=== PATIENT | female | born 1970 | race Caucasian/White ===

== ENCOUNTER 2017-02-14 19:52 | Emergency (ER) | payer MEDICARE, MEDICAID ==
[2017-02-14] MEDS ORDERED: Ondansetron INJ* 2 MG/ML VIAL IV ONE (20:25)
[2017-02-14] MEDS ORDERED: NS 0.9% 1000 ML* 1,000 ML IV ONE ×2 (20:25→23:27)
[2017-02-14 20:42] LABS: Hematocrit 39 % (35-47); Mean Corpuscular HGB Conc 33 g/dl (31-36); Mean Corpuscular Hemoglobin 32 pg (27-31); Mean Corpuscular Volume 95 fL (80-97); Mean Platelet Volume 9 um3 (7.4-10.4); Red Blood Count 4.13 10^6/ul (4.0-5.4); Red Cell Distribution Width 14 % (10.5-15); White Blood Count 5.2 10^3/ul (3.5-10.8)
[2017-02-14 20:57] LABS: ALT 44 U/L (7-52); Albumin 4.4 g/dL (3.2-5.2); Alkaline Phosphatase 90 U/L (34-104); BUN/Creatinine Ratio 14.5 (8-20); Blood Urea Nitrogen 10 mg/dL (6-24); C Reactive Protein 6.32 mg/L (< 5.00); CO2 Carbon Dioxide 24 mmol/L (22-32); Calcium 10.5 mg/dL (8.6-10.3); Chloride 97 mmol/L (101-111); EGFR African American 116.8 (>60); EGFR Non-African American 90.8 (>60); Globulin 5.4 g/dL (2-4); Glucose 120 mg/dL (70-100); Lipase 68 U/L (11.0-82.0); Sodium 132 mmol/L (133-145); Total Protein 9.8 g/dL (6.4-8.9)
[2017-02-14 21:44] LABS: Magnesium 1.4 mg/dL (1.9-2.7)
[2017-02-14] MEDS ORDERED: Metoclopramide IV* 5 MG/ML 2 ML VIAL IV ONE (21:50)
--- NOTE | 2017-02-14 22:06 | ED ---
Dillon Dove Billy, scribed for Josh Ash MD on 02/14/17 at 2024 . GI/ HPI - HPI Summary HPI Summary: Patient is a 46 year-old female coming to [facility] for evaluation of abdominal pain , nausea, and vomiting since yesterday. Patient reports pain severity 10/10. Nothing has made her pain better or worse. She also reports headache, sweating, as well as blood in the stool and vomit. - History of Current Complaint Chief Complaint: EDNauseaVomitDiarrh Time Seen by Provider: 02/14/17 20:08 Stated Complaint: HEAD PAIN/VOMITING/NAUSEA Hx Obtained From: Patient Onset/Duration: Started Days Ago Timing: Constant Severity: Moderate Current Severity: Moderate Pain Intensity: 10 Location of Pain: Diffuse Associated Signs and Symptoms: Positive: Hematemesis, Nausea, Vomiting, Blood w/ Stool, Diaphoresis Aggravating Factor(s): Nothing Alleviating Factor(s): Nothing - Allergy/Home Medications Allergies/Adverse Reactions: Allergies Allergy/AdvReac Type Severity Reaction Status Date / Time Iodinated Diagnostic Agents Allergy Intermediate Rash Verified 06/05/16 14:01 Sulfamethoxazole Allergy Intermediate Rash Verified 06/05/16 14:01 w/Trimethoprim [From ] NSAIDs AdvReac Intermediate Vomiting Verified 06/05/16 14:01 PMH/Surg Hx/FS Hx/Imm Hx Endocrine/Hematology History: Denies: Hx Diabetes, Hx Thyroid Disease Cardiovascular History: Denies: Hx Congestive Heart Failure, Hx Deep Vein Thrombosis, Hx Hypertension - She states that she has asthma and chronic bronchitis, but she's not on Rx., Hx Myocardial Infarction, Hx Pacemaker/ICD Respiratory History: Reports: Hx Asthma Denies: Hx Lung Cancer GI History: Denies: Hx Gall Bladder Disease, Hx Gastrointestinal Bleed, Hx Ulcer, Hx Urosepsis History: Denies: Hx Kidney Stones, Hx Renal Disease Musculoskeletal History: Reports: Other Musculoskeletal History - claims to have drop foot in both feet Neurological History: Denies: Hx Dementia, Hx Migraine, Hx Seizures, Hx Transient Ischemic Attacks (TIA) Psychiatric History: Reports: Hx Depression - On no medications. Denies: Hx Anxiety, Hx Schizophrenia, Hx Bipolar Disorder - Surgical History Surgery Procedure, Year, and Place: Screw and plate in left arm, appendectomy ( 1979) Infectious Disease History: No Infectious Disease History: Denies: History Other Infectious Disease, Traveled Outside the [place] in Last 30 Days - Family History Known Family History: Positive: Cardiac Disease, Hypertension, Diabetes - Social History Alcohol Use: Daily Alcohol Amount: 12 BEERS DAILY Substance Use Type: Reports: Cocaine, Heroin, Marijuana, Prescribed Substance Use Comment - Amount & Last Used: states she has not used in years, hx of drug use Smoking Status (MU): Heavy Every Day Tobacco Smoker Type: Cigarettes Amount Used/How Often: avg 1 ppd Review of Systems Positive: Skin Diaphoresis Positive: Abdominal Pain, Vomiting, Nausea, Other - blood in vomit and stool Positive: Headache All Other Systems Reviewed And Are Negative: Yes Physical Exam Triage Information Reviewed: Yes Vital Signs On Initial Exam: Initial Vitals Temp Pulse Resp BP Pulse Ox 98 F 88 16 141/97 100 02/14/17 20:04 02/14/17 20:04 02/14/17 20:04 02/14/17 20:04 02/14/17 20:04 Vital Signs Reviewed: Yes Appearance: Positive: No Pain Distress, Thin, Cachectic Skin: Positive: Warm Head/Face: Positive: Normal Head/Face Inspection Eyes: Positive: MARLENA ENT: Positive: Hearing grossly normal Neck: Positive: Supple Respiratory/Lung Sounds: Positive: Clear to Auscultation, Breath Sounds Present Cardiovascular: Positive: RRR Abdomen Description: Positive: Nontender, Soft Musculoskeletal: Positive: Normal, Strength/ROM Intact Neurological: Positive: Alert, Oriented to Person Place, Time Psychiatric: Positive: Affect/Mood Appropriate - [place] Coma Scale Coma Scale Total: 15 Diagnostics - Vital Signs Vital Signs Temp Pulse Resp BP Pulse Ox 02/14/17 20:04 98 F 88 16 141/97 100 - Laboratory Lab Results: Lab Results 02/14/17 02/14/17 02/14/17 Range/Units 20:30 20:30 20:30 WBC 5.2 (3.5-10.8) 10^3/ul RBC 4.13 (4.0-5.4) 10^6/ul Hgb 13.0 (12.0-16.0) g/dl Hct 39 (35-47) % MCV 95 (80-97) fL MCH 32 H (27-31) pg MCHC 33 (31-36) g/dl RDW 14 (10.5-15) % Plt Count 196 (150-450) 10^3/ul MPV 9 (7.4-10.4) um3 Neut % (Auto) 67.0 (38-83) % Lymph % (Auto) 21.8 L (25-47) % [place] % (Auto) 10.1 H (1-9) % Eos % (Auto) 0.6 (0-6) % Baso % (Auto) 0.5 (0-2) % Absolute Neuts (auto) 3.5 (1.5-7.7) 10^3/ul Absolute Lymphs (auto) 1.1 (1.0-4.8) 10^3/ul Absolute Monos (auto) 0.5 (0-0.8) 10^3/ul Absolute Eos (auto) 0 (0-0.6) 10^3/ul Absolute Basos (auto) 0 (0-0.2) 10^3/ul Absolute Nucleated RBC 0.01 10^3/ul Nucleated RBC % 0.1 INR (Anticoag Therapy) 1.08 (0.89-1.11) Sodium 132 L (133-145) mmol/L Potassium TNP Chloride 97 L (101-111) mmol/L Carbon Dioxide 24 (22-32) mmol/L Anion Gap TNP BUN 10 (6-24) mg/dL Creatinine 0.69 (0.51-0.95) mg/dL Est GFR ( Amer) 116.8 (>60) Est GFR (Non-Af Amer) 90.8 (>60) BUN/Creatinine Ratio 14.5 (8-20) Glucose 120 H (70-100) mg/dL Lactic Acid (0.5-2.0) mmol/L Calcium 10.5 H (8.6-10.3) mg/dL Magnesium TNP Total Bilirubin 0.80 (0.2-1.0) mg/dL AST TNP ALT 44 (7-52) U/L Alkaline Phosphatase 90 (34-104) U/L C-Reactive Protein 6.32 H (< 5.00) mg/L Total Protein 9.8 H (6.4-8.9) g/dL Albumin 4.4 (3.2-5.2) g/dL Globulin 5.4 H (2-4) g/dL Albumin/Globulin Ratio 0.8 L (1-3) Lipase 68 (11.0-82.0) U/L Beta HCG, Quant 5.02 mIU/mL 02/14/17 02/14/17 Range/Units 20:30 21:20 WBC (3.5-10.8) 10^3/ul RBC (4.0-5.4) 10^6/ul Hgb (12.0-16.0) g/dl Hct (35-47) % MCV (80-97) fL MCH (27-31) pg MCHC (31-36) g/dl RDW (10.5-15) % Plt Count (150-450) 10^3/ul MPV (7.4-10.4) um3 Neut % (Auto) (38-83) % Lymph % (Auto) (25-47) % [place] % (Auto) (1-9) % Eos % (Auto) (0-6) % Baso % (Auto) (0-2) % Absolute Neuts (auto) (1.5-7.7) 10^3/ul Absolute Lymphs (auto) (1.0-4.8) 10^3/ul Absolute Monos (auto) (0-0.8) 10^3/ul Absolute Eos (auto) (0-0.6) 10^3/ul Absolute Basos (auto) (0-0.2) 10^3/ul Absolute Nucleated RBC 10^3/ul Nucleated RBC % INR (Anticoag Therapy) (0.89-1.11) Sodium (133-145) mmol/L Potassium 4.0 Chloride (101-111) mmol/L Carbon Dioxide (22-32) mmol/L Anion Gap BUN (6-24) mg/dL Creatinine (0.51-0.95) mg/dL Est GFR ( Amer) (>60) Est GFR (Non-Af Amer) (>60) BUN/Creatinine Ratio (8-20) Glucose (70-100) mg/dL Lactic Acid 1.5 (0.5-2.0) mmol/L Calcium (8.6-10.3) mg/dL Magnesium 1.4 L Total Bilirubin (0.2-1.0) mg/dL AST 68 H ALT (7-52) U/L Alkaline Phosphatase (34-104) U/L C-Reactive Protein (< 5.00) mg/L Total Protein (6.4-8.9) g/dL Albumin (3.2-5.2) g/dL Globulin (2-4) g/dL Albumin/Globulin Ratio (1-3) Lipase (11.0-82.0) U/L Beta HCG, Quant mIU/mL Result Diagrams: 02/14/17 20:30 02/14/17 21:20 Lab Statement: Any lab studies that have been ordered have been reviewed, and results considered in the medical decision making process. Re-Evaluation - Re-Evaluation First Eval Change: Improved - tolerating po GIGU Course/Dx - Diagnoses Provider Diagnoses: Abdominal pain, Nausea & vomiting Discharge - Discharge Plan Condition: Stable Disposition: HOME Patient Education Materials: Abdominal Pain (ED), Acute Nausea and Vomiting (ED ) Referrals: Dereje Zavala DO [Primary Care Provider] - The documentation as recorded by the Dillon obrien Billy accurately reflects the service I personally performed and the decisions made by me, Josh Ash MD.
[2017-02-15] MEDS ORDERED: Ondansetron INJ* 2 MG/ML VIAL IV ONE (00:12)
[2017-02-15 02:29] VITALS: BP 131/72
== END 2017-02-15 02:29 | disposition home or self-care (01) ==
LOC: ED 19:52
DX: R10.9 Unspecified abdominal pain (principal); R11.2 Nausea with vomiting, unspecified; R51 Headache; R31.9 Hematuria, unspecified; F17.210 Nicotine dependence, cigarettes, uncomplicated
CPT/HCPCS: 36415; 80053; 83605; 83690; 83735; 84702; 85025; 85610; 86140; 96374; 96375; 99282; J2405

== ENCOUNTER 2018-01-13 18:57 | Emergency (ER) | payer MEDICARE, MEDICAID ==
[2018-01-13] MEDS ORDERED: Ketorolac INJ* 60 MG/2 ML VIAL IM ONE (19:55)
[2018-01-13] MEDS ORDERED: Morphine INJ* 4 MG/ML 1 ML CARPUJECT IV ONE (19:55)
--- NOTE | 2018-01-13 20:02 | ED ---
Upper Extremity Pain - HPI Summary HPI Summary: 47yo F presents with fall, R shoulder injury. She states this happened at ~6pm tonight as she was trying to set down her groceries at the [employer] -- as she did so she fell forward into a glass door injuring the shoulder. She denies head injury. She is LEFT handed. She denies numbness, but she has difficulty moving the arm. She is intoxicated and tearful and difficult to obtain hx from. Also reported is a visit last week with PCP for a "ligament injury" to the posterior R shoulder "from carrying a lot." She denies any drug use. - History of Current Complaint Chief Complaint: EDExtremityUpper Stated Complaint: FALL/SHOULDER INJURY Time Seen by Provider: 01/13/18 19:47 Hx Obtained From: Patient Hx From Patient Unobtainable Due To: Other - limited due to ETOH/intox Hx Last Menstrual Period: 06/01/16 - Allergies/Home Medications Allergies/Adverse Reactions: Allergies Allergy/AdvReac Type Severity Reaction Status Date / Time MS Iodinated Diagnostic Allergy Intermediate Rash Verified 06/05/16 14:01 Agents [Iodinated Diagnostic Agents] MS Sulfamethoxazole Allergy Intermediate Rash Verified 06/05/16 14:01 w/Trimethoprim [From ] MS NSAIDs [NSAIDs] AdvReac Intermediate Vomiting Verified 06/05/16 14:01 PMH/Surg Hx/FS Hx/Imm Hx Endocrine/Hematology History: Denies: Hx Diabetes, Hx Thyroid Disease Cardiovascular History: Denies: Hx Congestive Heart Failure, Hx Deep Vein Thrombosis, Hx Hypertension - She states that she has asthma and chronic bronchitis, but she's not on Rx., Hx Myocardial Infarction, Hx Pacemaker/ICD Respiratory History: Reports: Hx Asthma Denies: Hx Lung Cancer GI History: Reports: Other GI Disorders - "liver problems" with "spots on the liver" Denies: Hx Gall Bladder Disease, Hx Gastrointestinal Bleed, Hx Ulcer, Hx Urosepsis History: Denies: Hx Kidney Stones, Hx Renal Disease Musculoskeletal History: Reports: Other Musculoskeletal History - claims to have drop foot in both feet Neurological History: Reports: Other Neuro Impairments/Disorders - jumpy nerves Denies: Hx Dementia, Hx Migraine, Hx Seizures, Hx Transient Ischemic Attacks (TIA) Psychiatric History: Reports: Hx Depression - On no medications. Denies: Hx Anxiety, Hx Schizophrenia, Hx Bipolar Disorder - Surgical History Surgery Procedure, Year, and Place: Screw and plate in left arm, appendectomy ( 1979) Infectious Disease History: No Infectious Disease History: Denies: History Other Infectious Disease, Traveled Outside the [place] in Last 30 Days - Family History Known Family History: Positive: Cardiac Disease, Hypertension, Diabetes - Social History Alcohol Use: tonight as well Alcohol Amount: 12 BEERS DAILY Substance Use Type: Reports: Cocaine, Heroin, Marijuana, Prescribed Substance Use Comment - Amount & Last Used: states she has not used in years, hx of drug use Smoking Status (MU): Heavy Every Day Tobacco Smoker Type: Cigarettes Amount Used/How Often: avg 1 ppd Review of Systems Constitutional: Negative Negative: Cough Positive: Decreased ROM, Other - R shoulder injury. Negative: Myalgia Negative: Headache, Paresthesia, Numbness Positive: Anxious, Other - +alcohol All Other Systems Reviewed And Are Negative: Yes Physical Exam Triage Information Reviewed: Yes Vital Signs On Initial Exam: Initial Vitals Temp Pulse Resp BP Pulse Ox 36.7 C 66 16 75/48 97 01/13/18 19:00 01/13/18 19:00 01/13/18 19:00 01/13/18 19:00 01/13/18 19:00 Vital Signs Reviewed: Yes Appearance: Positive: Pain Distress - mild, tearful and smelling of ETOH Skin: Positive: Warm, Skin Color Reflects Adequate Perfusion, Dry Eyes: Positive: EOMI, Other: - tearful, injected conj ENT: Positive: Normal ENT inspection Neck: Positive: Supple, Nontender Respiratory/Lung Sounds: Positive: Other - occassional wheeze. Negative: Decreased Breath Sounds Cardiovascular: Positive: RRR Abdomen Description: Positive: Nontender Musculoskeletal: Positive: Other - R sup shoulder area with mild abrasion, anterior shoulder with swelling. Unable to determine exact site of tenderness as she wails with any light palpation from distal clavicle through the elbow. Hand is neurovasc intact. No pain with supination/pronation at elbow. Unable to range shoulder due to pain and cooperation. Neurological: Positive: Normal, Alert, Oriented to Person Place, Time AVPU Assessment: Alert Procedures - Procedure Summary Procedure Summary: R shoulder sling: for fracture. Pt placed in a R shoulder immobilizer. NV intact. [place] well. Diagnostics - Vital Signs Vital Signs Temp Pulse Resp BP Pulse Ox 01/13/18 19:44 92/65 01/13/18 19:00 36.7 C 66 16 75/48 97 - Laboratory Lab Statement: Any lab studies that have been ordered have been reviewed, and results considered in the medical decision making process. - Radiology No standard instances Xray Interpretation: Positive (See Comments) Radiology Interpretation Completed By: Radiologist - Xray of Humerus/R Shoulder : Prox humeral fx (neck) Re-Evaluation - Re-Evaluation First Eval Change: Improved Course/Dx - Course Course Of Treatment: Pt tx for pain, fx confirmed. Placed in sling/immobilizer. D/W Ortho who will see in office. Tx pain. Stated NSAID allergy. - Diagnoses Provider Diagnoses: Proximal humerus fracture, Fall, Alcohol ingestion Discharge - Discharge Plan Condition: Good Disposition: HOME Prescriptions: Oxycodone HCl/Acetaminophen [Percocet 5-325 mg Tablet] 1 each PO Q4H PRN #20 tablet MDD 6 PRN Reason: shoulder pain Patient Education Materials: Proximal Humerus Fracture (ED) Referrals: Dereje Zavala DO [Primary Care Provider] - Fede Kline MD [Medical Doctor] - Additional Instructions: Keep slinged. Ice for comfort. Call in the morning to establish follow up with the Orthopedic doctor. Return if worse, new symptoms or other concerns.
[2018-01-13] MEDS ORDERED: Morphine INJ* 4 MG/ML 1 ML SYRINGE (NEW SYRINGE VERSION) ONE (20:27)
--- NOTE | 2018-01-13 20:30 | RAD ---
INDICATION: Right arm injury COMPARISON: Right shoulder same date TECHNIQUE: AP and lateral views were obtained. FINDINGS: There is a mildly impacted and displaced transverse fractures of the neck of the humerus. No other fractures are evident. The soft tissues are intact. IMPRESSION: PROXIMAL HUMERAL FRACTURE.
--- NOTE | 2018-01-13 20:31 | RAD ---
INDICATION: Proximal humeral fracture COMPARISON: Right humerus same date TECHNIQUE: AP and lateral views were obtained. FINDINGS: There is a transverse fracture involving the neck of the humerus. There is mild impaction and there is mild medial displacement of distal fracture fragment. No other fractures are evident. The a.c. and glenohumeral joints are intact. IMPRESSION: HUMERAL NECK FRACTURE.
[2018-01-13 22:04] VITALS: BP 108/78
== END 2018-01-13 22:07 | disposition home or self-care (01) ==
LOC: ED 18:57
DX: S42.291A Other displaced fracture of upper end of right humerus, initial encounter for closed fracture (principal); W19.XXXA Unspecified fall, initial encounter; Y92.9 Unspecified place or not applicable; J44.9 Chronic obstructive pulmonary disease, unspecified; F17.210 Nicotine dependence, cigarettes, uncomplicated; Z72.89 Other problems related to lifestyle
CPT/HCPCS: 99283; J1885; J2270

== ENCOUNTER 2018-11-04 18:19 | Emergency (ER) | payer MEDICARE, MEDICAID ==
[2018-11-04] MEDS ORDERED: Acetaminophen TAB* 325 MG PO ONE (18:52)
--- NOTE | 2018-11-04 19:52 | ED ---
Adult Trauma - HPI Summary HPI Summary: 48-year-old female presents with tailbone pain and head injury after fall today. States she slipped on a stairs and fell down 8 stairs. She denies any loss consciousness. She admits to nausea vomiting but she states it may be due to her being off her gabapentin. She denies any dizziness. She also admits to left-sided rib pain. She was able to ambulate into the house. States that she had a couple beers prior to coming. She states that she felt off the past couple days due to not being a gabapentin. She has a refill of gabapentin at her pharmacy. She denies any change in vision. She states the pain seems to radiate to her hips. No numbness or tingling. No weakness. No loss of bowel or bladder or saddle anesthesias. No fevers. - History of Current Complaint Chief Complaint: EDHeadInjury Stated Complaint: FALL Time Seen by Provider: 11/04/18 18:36 Hx Last Menstrual Period: 06/01/16 Pain Intensity: 10 - Allergy/Home Medications Allergies/Adverse Reactions: Allergies Allergy/AdvReac Type Severity Reaction Status Date / Time MS Iodinated Diagnostic Allergy Intermediate Rash Verified 11/04/18 18:35 Agents [Iodinated Diagnostic Agents] MS Sulfamethoxazole Allergy Intermediate Rash Verified 11/04/18 18:35 w/Trimethoprim [From ] MS NSAIDs [NSAIDs] AdvReac Intermediate Vomiting Verified 11/04/18 18:35 PMH/Surg Hx/FS Hx/Imm Hx Endocrine/Hematology History: Denies: Hx Diabetes, Hx Thyroid Disease Cardiovascular History: Denies: Hx Congestive Heart Failure, Hx Deep Vein Thrombosis, Hx Hypertension - She states that she has asthma and chronic bronchitis, but she's not on Rx., Hx Myocardial Infarction, Hx Pacemaker/ICD Respiratory History: Reports: Hx Asthma Denies: Hx Lung Cancer GI History: Reports: Other GI Disorders - "liver problems" with "spots on the liver" Denies: Hx Gall Bladder Disease, Hx Gastrointestinal Bleed, Hx Ulcer, Hx Urosepsis History: Denies: Hx Kidney Stones, Hx Renal Disease Musculoskeletal History: Reports: Other Musculoskeletal History - claims to have drop foot in both feet Neurological History: Reports: Other Neuro Impairments/Disorders - jumpy nerves Denies: Hx Dementia, Hx Migraine, Hx Seizures, Hx Transient Ischemic Attacks (TIA) Psychiatric History: Reports: Hx Depression - On no medications. Denies: Hx Anxiety, Hx Schizophrenia, Hx Bipolar Disorder - Surgical History Surgery Procedure, Year, and Place: Screw and plate in left arm, appendectomy ( 1979) Infectious Disease History: No Infectious Disease History: Denies: History Other Infectious Disease, Traveled Outside the [place] in Last 30 Days - Family History Known Family History: Positive: Cardiac Disease, Hypertension, Diabetes - Social History Alcohol Use: Daily Alcohol Amount: 12 BEERS DAILY Substance Use Type: Reports: Cocaine, Heroin, Marijuana, Prescribed Substance Use Comment - Amount & Last Used: states she has not used in years, hx of drug use Smoking Status (MU): Heavy Every Day Tobacco Smoker Type: Cigarettes Amount Used/How Often: avg 1 ppd Review of Systems Negative: Fever Positive: Other - left side rib pain. Negative: Chest Pain Negative: Shortness Of Breath Positive: Myalgia - tailbone pain Positive: Headache All Other Systems Reviewed And Are Negative: Yes Physical Exam Triage Information Reviewed: Yes Vital Signs On Initial Exam: Initial Vitals Temp Pulse Resp BP Pulse Ox 98.4 F 86 19 122/82 100 11/04/18 18:30 11/04/18 18:30 11/04/18 18:30 11/04/18 18:30 11/04/18 18:30 Vital Signs Reviewed: Yes Appearance: Positive: Well-Appearing Skin: Positive: Warm, Dry Head/Face: Positive: Normal Head/Face Inspection, Other - no step off, racoon eyes, clark sign Eyes: Positive: Normal, EOMI, MARLENA, Conjunctiva Clear ENT: Positive: Normal ENT inspection, Pharynx normal, TMs normal Respiratory/Lung Sounds: Positive: Clear to Auscultation, Breath Sounds Present , Other - tenderness left lower ribs Cardiovascular: Positive: Normal, RRR Musculoskeletal: Positive: Strength/ROM Intact - back and legs, Other - tenderness tailbone, good pulses Neurological: Positive: Sensory/Motor Intact, Alert, Oriented to Person Place, Time, CN Intact II-III, Normal Gait Psychiatric: Positive: Normal - [place] Coma Scale Best Eye Response: 4 - Spontaneous Best Motor Response: 6 - Obeys Commands Best Verbal Response: 5 - Oriented Coma Scale Total: 15 Diagnostics - Vital Signs Vital Signs Temp Pulse Resp BP Pulse Ox 11/04/18 18:30 98.4 F 86 19 122/82 100 - Laboratory Lab Statement: Any lab studies that have been ordered have been reviewed, and results considered in the medical decision making process. - Radiology rib Radiology Interpretation Completed By: ED Physician Summary of Radiographic Findings: no fx - CT brain CT Interpretation Completed By: Radiologist Summary of CT Findings: IMPRESSION: 1. No traumatic intracranial abnormalities. 2. Brain atrophy out of portion to patient's age. pelvis CT Interpretation Completed By: Radiologist Summary of CT Findings: IMPRESSION: Acute traumatic fracture S3 posterior elements. Adult Trauma Course/Dx - Course Course Of Treatment: 48-year-old female presents with tailbone pain and head injury after fall today. States she slipped on a stairs and fell down 8 stairs. She denies any loss consciousness. She admits to nausea vomiting but she states it may be due to her being off her gabapentin. She denies any dizziness. She also admits to left-sided rib pain. She was able to ambulate into the house. States that she had a couple beers prior to coming. She states that she felt off the past couple days due to not being a gabapentin. She has a refill of gabapentin at her pharmacy. She denies any change in vision. She states the pain seems to radiate to her hips. No numbness or tingling. No weakness. No loss of bowel or bladder or saddle anesthesias. No fevers. On exam tenderness over the tailbone. Tenderness over left lower ribs. Normal neuro exam. CT brain normal. CT pelvis shows S3 posterior fracture. Patient is neurovascularly intact. rib X-ray read by me as normal. Told to use doughnut pillow. Gave Colace for constipation. Gave pain medication. Told to follow-up with primary or neurosurgery. discussed case with dr villalobos. patient understand and agrees with plan. - Diagnoses Differential Diagnosis/HQI/PQRI: Positive: Contusion(s), Fracture, Hematoma(s) Provider Diagnoses: Head injury, Fracture of sacrum, Fall, Rib pain on left side Discharge - Sign-Out/Discharge Documenting (check all that apply): Patient Departure - Discharge Plan Condition: Good Disposition: HOME Prescriptions: Docusate CAP* [Colace Cap*] 100 mg PO BID #20 cap oxyCODONE/Acetamin 5/325 MG* [Percocet 5/325 TAB*] 1 tab PO Q6H PRN #16 tab MDD 4 PRN Reason: Pain Patient Education Materials: Sacral Fracture (ED) Referrals: Claude Yeh DO [Primary Care Provider] - Sloan Bob MD [Medical Doctor] - Additional Instructions: Take Tylenol every 6 hours for pain, use percocet every 6 hours for pain although will cause constipation Use doughnut pillow to avoid putting pressure on area Increase fiber intake take colace twice a day Follow up with primary or neurosurgery Return to ED if develop any new or worsening symptoms - Billing Disposition and Condition Condition: GOOD Disposition: Home
[2018-11-04] MEDS ORDERED: oxyCODONE TAB* 5 MG TAB PO ONE (19:54)
[2018-11-04] MEDS ORDERED: Gabapentin CAP(*) 300 MG PO ONE (20:00)
[2018-11-04 20:33] VITALS: BP 119/64
== END 2018-11-04 20:32 | disposition home or self-care (01) ==
LOC: ED 18:19
DX: S09.90XA Unspecified injury of head, initial encounter (principal); S32.10XA Unspecified fracture of sacrum, initial encounter for closed fracture; W10.9XXA Fall (on) (from) unspecified stairs and steps, initial encounter; Y92.9 Unspecified place or not applicable; R07.81 Pleurodynia; Z88.2 Allergy status to sulfonamides; Z88.6 Allergy status to analgesic agent; Z91.041 Radiographic dye allergy status; F17.210 Nicotine dependence, cigarettes, uncomplicated
CPT/HCPCS: 70450; 72192; 99282; A9270-GY

== ENCOUNTER 2019-04-27 21:03 | Emergency (ER) | payer MEDICARE, MEDICAID ==
[2019-04-27] MEDS ORDERED: hydrOXYzine HCL TAB* 50 MG PO ONE (21:43)
[2019-04-27] MEDS ORDERED: Cephalexin CAP* 500 MG PO ONE (21:43)
--- NOTE | 2019-04-27 22:37 | ED ---
Skin Complaint - HPI Summary HPI Summary: Pt is a 48 y/o F presenting to [facility] brought in by EMS with a CC of an abrasion on her lower left leg. She states that the abrasion is itchy, red, and painful, rated an 8/10, and that she is unable to stop scratching her leg. She is unable to make her leg comfortable and states that it is also sore. Pt reports that she is allergic to Motrin and she has been taking Tylenol to no effect. She requested Tylenol 3 which was not given due to her large Hx of alcoholic consumption and daily drinking. - History of Current Complaint Chief Complaint: EDSoftTissueLowExtr Time Seen by Provider: 04/27/19 21:41 Stated Complaint: SPIDER BITES PER EMS Hx Obtained From: Patient Onset/Duration: Still Present Timing: Constant Onset Severity: Severe Current Severity: Severe Pain Intensity: 8 Pain Scale Used: 0-10 Numeric Skin Location: Generalized - L Lower leg Character: Swelling, Pain, Redness Aggravating Symptom(s): Nothing Alleviating Symptom(s): Nothing - APAP did not help, allergic to motrin Associated Signs & Symptoms: Tenderness, Red Streaks - Red around the abrasion, generalized - Allergy/Home Medications Allergies/Adverse Reactions: Allergies Allergy/AdvReac Type Severity Reaction Status Date / Time Iodinated Contrast- Oral and Allergy Rash Verified 04/27/19 21:13 IV Dye NSAIDS (Non-Steroidal Allergy Vomiting Verified 04/27/19 21:13 Anti-Inflamma sulfamethoxazole Allergy Rash Verified 04/27/19 21:13 [From ] trimethoprim [From ] Allergy Rash Verified 04/27/19 21:13 PMH/Surg Hx/FS Hx/Imm Hx Previously Healthy: No Endocrine/Hematology History: Denies: Hx Diabetes, Hx Thyroid Disease Cardiovascular History: Denies: Hx Congestive Heart Failure, Hx Deep Vein Thrombosis, Hx Hypertension - She states that she has asthma and chronic bronchitis, but she's not on Rx., Hx Myocardial Infarction, Hx Pacemaker/ICD Respiratory History: Reports: Hx Asthma Denies: Hx Lung Cancer GI History: Reports: Other GI Disorders - "liver problems" with "spots on the liver" Denies: Hx Gall Bladder Disease, Hx Gastrointestinal Bleed, Hx Ulcer, Hx Urosepsis History: Denies: Hx Kidney Stones, Hx Renal Disease Musculoskeletal History: Reports: Other Musculoskeletal History - claims to have drop foot in both feet Neurological History: Reports: Other Neuro Impairments/Disorders - jumpy nerves Denies: Hx Dementia, Hx Migraine, Hx Seizures, Hx Transient Ischemic Attacks (TIA) Psychiatric History: Reports: Hx Depression - On no medications. Denies: Hx Anxiety, Hx Schizophrenia, Hx Bipolar Disorder - Surgical History Surgery Procedure, Year, and Place: Screw and plate in left arm, appendectomy ( 1979) Infectious Disease History: No Infectious Disease History: Denies: History Other Infectious Disease, Traveled Outside the [place] in Last 30 Days - Family History Known Family History: Positive: Cardiac Disease, Hypertension, Diabetes - Social History Alcohol Use: Daily Alcohol Amount: 12 BEERS DAILY Substance Use Type: Reports: Prescribed Substance Use Comment - Amount & Last Used: states she has not used in years, hx of drug use Smoking Status (MU): Heavy Every Day Tobacco Smoker Type: Cigarettes Amount Used/How Often: avg 1 ppd Review of Systems Negative: Fever Positive: Other - L Lower leg soreness Positive: Other - itchy/red aroung the abrasion All Other Systems Reviewed And Are Negative: Yes Physical Exam - Summary Physical Exam Summary: Appearance: Well-appearing, Well-nourished, lying in bed comfortably Skin: Warm, dry. On the left leg there are a few scattered papules on it which appears to be draining a small amount of sebum and/or pus. There is some mild associated cellulitis. Eyes: sclera anicteric, no conjunctival pallor ENT: mucous membranes moist, pharynx appears normal Neck: Supple, nontender Respiratory: Clear to auscultation, no signs of respiratory distress Cardiovascular: Normal S1, S2. No murmurs. Normal distal pulses in tibial and radial bilaterally. Abdomen: Soft, nontender, normal active bowel sounds present Musculoskeletal: Normal, Strength/ROM Intact Neurological: A&Ox3, awake and alert, mentation is normal, speech is fluent and appropriate Psychiatric: affect is normal, does not appear anxious or depressed Triage Information Reviewed: Yes Vital Signs On Initial Exam: Initial Vitals Temp Pulse Resp BP Pulse Ox 98.6 F 76 18 111/77 95 04/27/19 21:08 04/27/19 21:08 04/27/19 21:08 04/27/19 21:08 04/27/19 21:08 Vital Signs Reviewed: Yes Diagnostics - Vital Signs Vital Signs Temp Pulse Resp BP Pulse Ox 04/27/19 21:08 98.6 F 76 18 111/77 95 - Laboratory Lab Statement: Any lab studies that have been ordered have been reviewed, and results considered in the medical decision making process. Course/Dx - Course Course Of Treatment: Pt is a 48 y/o F presenting to [facility] brought in by EMS with a CC of an abrasion on her lower left leg. She states that the abrasion is itchy and painful and that she is unable to stop scratching her leg. She is unable to make her leg comfortable and states that it is also sore. Pt reports that she is allergic to Motrin and she has been taking Tylenol to no effect. She requested Tylenol 3 which was not given due to her large Hx of alcoholic consumption and daily drinking. Cephalexin HCL and Hydroxyzine was given to treat the abrasion. The pt was discharged home with a Dx of celluitis and instructed to follow up with her PCP within 3 days and to return to the ED with any new or worsening symptoms. - Diagnoses Provider Diagnoses: Abscess or cellulitis of ankle, Alcohol abuse Discharge - Sign-Out/Discharge Documenting (check all that apply): Patient Departure - discharge Patient Received Moderate/Deep Sedation with Procedure: No - Discharge Plan Condition: Good Disposition: HOME Prescriptions: Cephalexin CAP* [Keflex CAP*] 500 mg PO QID #28 cap hydrOXYzine pamoate [Vistaril] 25 mg PO TID PRN #20 cap PRN Reason: Itching Patient Education Materials: Cellulitis (ED), Abuse of Alcohol (ED) Referrals: Claude Yeh DO [Primary Care Provider] - - Billing Disposition and Condition Condition: GOOD Disposition: Home - Attestation Statements Document Initiated by Scribe: Yes Documenting Scribe: Jassi Ewing Provider For Whom Marcial is Documenting (Include Credential): Lee Garcia MD Scribe Attestation: Jassi Dove scribed for Lee Garcia MD on 04/28/19 at 0501. Scribe Documentation Reviewed: Yes Provider Attestation: The documentation as recorded by the Jassi obrien accurately reflects the service I personally performed and the decisions made by me, Lee Garcia MD Status of Scribe Document: Viewed
[2019-04-27 23:08] VITALS: BP 112/77
== END 2019-04-27 23:07 | disposition home or self-care (01) ==
LOC: ED 21:03
DX: L03.116 Cellulitis of left lower limb (principal); S80.812A Abrasion, left lower leg, initial encounter; X58.XXXA Exposure to other specified factors, initial encounter; Y92.9 Unspecified place or not applicable; F10.10 Alcohol abuse, uncomplicated; Z88.0 Allergy status to penicillin; F17.210 Nicotine dependence, cigarettes, uncomplicated
CPT/HCPCS: 99282; A9270-GY

== ENCOUNTER 2019-08-16 17:24 | Observation (INO) | payer MEDICARE, MEDICAID ==
[2019-08-16] MEDS ORDERED: Acetaminophen TAB* 325 MG PO ONE (17:53)
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
[2019-08-16 18:23] LABS: ABS Basophils 0.1 10^3/ul (0-0.2); ABS Eosinophils 0.2 10^3/ul (0-0.6); ABS Lymphocytes 2.6 10^3/ul (1.0-4.8); ABS Monocytes 0.7 10^3/ul (0-0.8); ABS Neutrophils 4.4 10^3/ul (1.5-7.7); Eosinophil % 2.1 %; Hematocrit 40 % (35-47); Hemoglobin 14.2 g/dL (12.0-16.0); Lymphocyte % 32.8 %; Mean Corpuscular HGB Conc 35 g/dL (31-36); Mean Corpuscular Hemoglobin 34 pg (27-31); Mean Corpuscular Volume 96 fL (80-97); Mean Platelet Volume 7.5 fL (7.4-10.4); Platelet Count 166 10^3/uL (150-450); Red Blood Count 4.19 10^6 /uL (3.70-4.87); Red Cell Distribution Width 14 % (10-15)
[2019-08-16 18:37] LABS: Albumin 4.3 g/dL (3.2-5.2); Albumin/Globulin Ratio 0.8 (1-3); BUN/Creatinine Ratio 11.1 (8-20); EGFR African American 120.5 (>60); EGFR Non-African American 99.6 (>60); Globulin 5.2 g/dL (2-4); Potassium 4.1 mmol/L (3.5-5.0); Total Bilirubin 0.8 mg/dL (0.2-1.0); Total Protein 9.5 g/dL (6.4-8.9)
[2019-08-16 19:11] LABS: HDL Cholesterol 62.9 mg/dL
[2019-08-16] MEDS ORDERED: Acetaminophen TAB* 325 MG PO PRN (21:14)
[2019-08-16] MEDS ORDERED: Ondansetron INJ* 2 MG/ML VIAL IV PRN (21:14)
[2019-08-16] MEDS ORDERED: LORazepam TAB(*) 0.5 MG PO PRN (21:14)
[2019-08-16] MEDS ORDERED: NS 0.9% 1000 ML** 1,000 ML IV SCH (21:15)
[2019-08-16] MEDS ORDERED: Famotidine TAB* 20 MG PO PRN (21:16)
[2019-08-16] MEDS ORDERED: Enoxaparin(*) 40 MG/0.4 ML SYR SUBCUT SCH (22:00)
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
[2019-08-16] MEDS ORDERED: diPHENhydraMINE PO* 25 MG PO SCH (23:00)
[2019-08-16] MEDS ORDERED: Gabapentin CAP(*) 300 MG PO SCH (23:00)
[2019-08-16] MEDS ORDERED: traZODone TAB* 100 MG PO SCH (23:00)
[2019-08-16 23:11] VITALS: BP 120/72
[2019-08-16] MEDS ORDERED: Nicotine* 2MG (FRUIT FLAVOR) GUM PO PRN (23:24)
[2019-08-17] MEDS ORDERED: Nicotine PATCH 21 MG/24 HR* PATCH TRANSDERM SCH (08:00)
[2019-08-17] MEDS ORDERED: Docusate CAP* 100 MG PO SCH (09:00)
[2019-08-17] MEDS ORDERED: Nicotine Patch Removal NOTE FOLLOW UP SCH (21:00)
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
== END 2019-08-17 00:52 | disposition left against medical advice (07) ==
LOC: ED 17:24 → MEDTELE 21:14
PROVIDERS: ADMIT Hospitalist; ATTEND Hospitalist
DX: R07.9 Chest pain, unspecified (principal); F10.129 Alcohol abuse with intoxication, unspecified; R51 Headache; F32.9 Major depressive disorder, single episode, unspecified; F17.210 Nicotine dependence, cigarettes, uncomplicated; Z87.828 Personal history of other (healed) physical injury and trauma; F41.9 Anxiety disorder, unspecified; K21.9 Gastro-esophageal reflux disease without esophagitis
CPT/HCPCS: 36415; 70450; 71045; 80053; 80061; 80320; 83036; 83605; 84484; 85025; 93005; 96372; 99283; A9270-GY; G0378; G0480; J1650

== ENCOUNTER 2021-12-06 21:35 | Observation (INO) ==
[2021-12-06 22:36] LABS: ABS Basophils 0.1 10^3/ul (0-0.2); ABS Eosinophils 0.1 10^3/ul (0-0.6); ABS Lymphocytes 1.7 10^3/ul (1.0-4.8); ABS Monocytes 0.5 10^3/ul (0-0.8); ABS Neutrophils 3.2 10^3/ul (1.5-7.7); Eosinophil % 1.5 %; Hematocrit 33 % (35-47); Hemoglobin 11.4 g/dL (12.0-16.0); Lymphocyte % 30.7 %; Mean Corpuscular HGB Conc 35 g/dL (31-36); Mean Corpuscular Hemoglobin 35 pg (27-31); Mean Corpuscular Volume 101 fL (80-97); Mean Platelet Volume 7.4 fL (7.4-10.4); Platelet Count 148 10^3/uL (150-450); Red Blood Count 3.27 10^6 /uL (3.70-4.87); Red Cell Distribution Width 15 % (10-15); White Blood Count 5.6 10^3/uL (3.5-10.8)
[2021-12-06] MEDS ORDERED: NS 0.9% 1000 ml BAG 1,000 ML IV ONE (22:41)
[2021-12-06 22:59] LABS: Albumin 3.4 g/dL (3.2-5.2); Albumin/Globulin Ratio 0.6 (1-3); Globulin 5.3 g/dL (2-4); Potassium 3.6 mmol/L (3.5-5.0); Total Protein 8.7 g/dL (6.4-8.9); eGFR CKD-EPI 95.1 (>60)
[2021-12-06] MEDS ORDERED: Thiamine 100 MG/ML 2 ml VIAL (200 mg) ONE (23:00)
[2021-12-06] MEDS ORDERED: NS 0.9% 1000 ml BAG 1,000 ML ONE (23:00)
[2021-12-06] MEDS ORDERED: Thiamine 100 MG/ML 2 ml VIAL 100 MG, Folic Acid IV 1 MG, Multiple Vitamin IV ADULT 10 M... IV ONE (23:00)
[2021-12-06 23:16] LABS: Alcohol, S 137 mg/dL (<13)
[2021-12-07] MEDS ORDERED: Ondansetron 4 mg VIAL 2 MG/ML 2 ml VIAL IV PRN (01:23)
[2021-12-07 02:09] LABS: C Reactive Protein 5.46 mg/L (<8.01)
[2021-12-07] MEDS ORDERED: Lorazepam PYXIS KEY PRN (02:32)
[2021-12-07] MEDS ORDERED: LORazepam 2 mg VIAL 1 ml IV PUSH PRN (02:32)
[2021-12-07 03:11] LABS: HDL Cholesterol 37.4 mg/dL
[2021-12-07 04:52] LABS: Acetaminophen < 15 mcg/mL
[2021-12-07] MEDS ORDERED: NS 0.9% 1000 ml BAG 1,000 ML IV SCH (05:15)
[2021-12-07 06:06] LABS: Folate 16.07 ng/mL (5.90-24.80)
[2021-12-07 06:07] LABS: INR 1.43 (0.86-1.15)
[2021-12-07 06:07] LABS: Vitamin B12 868 pg/mL (180-914)
[2021-12-07 12:37] LABS: ABS Eosinophils 0.1 10^3/ul (0-0.6); ABS Lymphocytes 1.4 10^3/ul (1.0-4.8); ABS Monocytes 0.5 10^3/ul (0-0.8); ABS Neutrophils 2.5 10^3/ul (1.5-7.7); Eosinophil % 1.9 %; Hematocrit 31 % (35-47); Hemoglobin 10.7 g/dL (12.0-16.0); Lymphocyte % 31.3 %; Mean Corpuscular HGB Conc 35 g/dL (31-36); Mean Corpuscular Hemoglobin 35 pg (27-31); Mean Corpuscular Volume 100 fL (80-97); Mean Platelet Volume 7.2 fL (7.4-10.4); Nucleated Red Blood Cells % 0.2; Platelet Count 140 10^3/uL (150-450); Red Blood Count 3.07 10^6 /uL (3.70-4.87); Red Cell Distribution Width 16 % (10-15); White Blood Count 4.6 10^3/uL (3.5-10.8)
[2021-12-07 12:55] LABS: Albumin 3.1 g/dL (3.2-5.2); Albumin/Globulin Ratio 0.6 (1-3); Calcium 8.2 mg/dL (8.6-10.3); Potassium 4.3 mmol/L (3.5-5.0); Total Bilirubin 1.3 mg/dL (0.2-1.0); Total Protein 8.1 g/dL (6.4-8.9); eGFR CKD-EPI 96.7 (>60)
[2021-12-07] MEDS: diPHENhydraMINE 25 mg TAB PO PRN (19:50)
[2021-12-07 20:32] LABS: Urine Appearance Clear; Urine Bilirubin Negative (Negative); Urine Blood 1+ (Negative); Urine Color Yellow; Urine Glucose Negative (Negative); Urine Ketones Negative (Negative); Urine Nitrite Negative (Negative); Urine Protein Negative (Negative); Urine Specific Gravity 1.005 (1.002-1.030); Urine Urobilinogen Negative (Negative)
[2021-12-07 20:41] LABS: Urine Bacteria 1+ (Absent); Urine Red Blood Cell Trace(0-2/hpf) (Absent); Urine Squamous Epithelial Cell Present (Absent); Urine White Blood Cell Trace(0-5/hpf) (Absent)
[2021-12-08 13:15] LABS: ABS Eosinophils 0.1 10^3/ul (0-0.6); ABS Lymphocytes 1.1 10^3/ul (1.0-4.8); ABS Monocytes 0.4 10^3/ul (0-0.8); ABS Neutrophils 1.9 10^3/ul (1.5-7.7); Eosinophil % 2.2 %; Hematocrit 30 % (35-47); Hemoglobin 10.3 g/dL (12.0-16.0); Lymphocyte % 30.8 %; Mean Corpuscular HGB Conc 34 g/dL (31-36); Mean Corpuscular Hemoglobin 35 pg (27-31); Mean Corpuscular Volume 101 fL (80-97); Mean Platelet Volume 7.6 fL (7.4-10.4); Nucleated Red Blood Cells % 0.1; Platelet Count 126 10^3/uL (150-450); Red Blood Count 2.98 10^6 /uL (3.70-4.87); Red Cell Distribution Width 16 % (10-15); White Blood Count 3.4 10^3/uL (3.5-10.8)
[2021-12-08 13:27] LABS: Calcium 7.8 mg/dL (8.6-10.3); Potassium 3.7 mmol/L (3.5-5.0); eGFR CKD-EPI 80.7 (>60)
[2021-12-08] MEDS ORDERED: Nicotine GUM 2MG FRUIT FLAVOR PO PRN (15:58)
[2021-12-08] MEDS: Nicotine PATCH 21 MG/24 HR PATCH TRANSDERM SCH (16:34)
[2021-12-08] MEDS: diPHENhydraMINE 25 mg TAB PO PRN (20:38)
[2021-12-09] MEDS ORDERED: Nicotine PATCH 21 MG/24 HR PATCH TRANSDERM SCH (09:00)
[2021-12-09] MEDS: Nicotine PATCH 21 MG/24 HR PATCH TRANSDERM SCH (09:40)
[2021-12-09] MEDS ORDERED: NS 0.9% 1000 ml BAG 1,000 ML IV ONE (10:11)
[2021-12-09 11:30] LABS: Hematocrit 28 % (35-47); Hemoglobin 9.8 g/dL (12.0-16.0); Mean Corpuscular HGB Conc 34 g/dL (31-36); Mean Corpuscular Hemoglobin 35 pg (27-31); Mean Corpuscular Volume 102 fL (80-97); Mean Platelet Volume 7.4 fL (7.4-10.4); Platelet Count 110 10^3/uL (150-450); Red Blood Count 2.78 10^6 /uL (3.70-4.87); Red Cell Distribution Width 16 % (10-15); White Blood Count 3.4 10^3/uL (3.5-10.8)
[2021-12-09 11:42] LABS: Albumin 2.8 g/dL (3.2-5.2); Albumin/Globulin Ratio 0.7 (1-3); Calcium 7.7 mg/dL (8.6-10.3); Globulin 4.3 g/dL (2-4); Potassium 3.4 mmol/L (3.5-5.0); Total Bilirubin 0.9 mg/dL (0.2-1.0); Total Protein 7.1 g/dL (6.4-8.9); eGFR CKD-EPI 78.5 (>60)
[2021-12-09] MEDS: diPHENhydraMINE 25 mg TAB PO PRN (20:01)
[2021-12-10 06:16] LABS: ABS Eosinophils 0.1 10^3/ul (0-0.6); ABS Lymphocytes 1.2 10^3/ul (1.0-4.8); ABS Monocytes 0.6 10^3/ul (0-0.8); ABS Neutrophils 2.1 10^3/ul (1.5-7.7); Eosinophil % 3.4 %; Hematocrit 29 % (35-47); Hemoglobin 9.9 g/dL (12.0-16.0); Lymphocyte % 29.9 %; Mean Corpuscular HGB Conc 35 g/dL (31-36); Mean Corpuscular Hemoglobin 36 pg (27-31); Mean Corpuscular Volume 103 fL (80-97); Mean Platelet Volume 7.4 fL (7.4-10.4); Nucleated Red Blood Cells % 0.1; Platelet Count 119 10^3/uL (150-450); Red Blood Count 2.77 10^6 /uL (3.70-4.87); Red Cell Distribution Width 16 % (10-15)
[2021-12-10 06:33] LABS: Calcium 7.4 mg/dL (8.6-10.3); Potassium 4.2 mmol/L (3.5-5.0); eGFR CKD-EPI 92.2 (>60)
[2021-12-10] MEDS: Nicotine PATCH 21 MG/24 HR PATCH TRANSDERM SCH (09:41)
[2021-12-10 12:57] VITALS: BP 118/64
== END 2021-12-10 12:00 | disposition home or self-care (01) ==
LOC: EDHOLD 21:35 → ED 21:35 → SUATTDRO 12-07 02:21 → MEDTELE 12-07 04:30
PROVIDERS: ADMIT Internal Medicine; ATTEND Internal Medicine

== ENCOUNTER 2022-01-03 19:26 | Inpatient (IN) ==
[2022-01-03] MEDS ORDERED: Droperidol 5 MG/2 ML 2 ML VIAL IV ONE (19:33)
[2022-01-03] MEDS ORDERED: Lactated Ringers 1000 ml BAG 1,000 ML IV ONE (19:33)
[2022-01-03 20:52] LABS: ABS Basophils 0.1 10^3/ul (0-0.2); ABS Eosinophils 0.3 10^3/ul (0-0.6); ABS Lymphocytes 2.4 10^3/ul (1.0-4.8); ABS Monocytes 1.2 10^3/ul (0-0.8); ABS Neutrophils 7.6 10^3/ul (1.5-7.7); Eosinophil % 2.5 %; Hematocrit 32 % (35-47); Hemoglobin 11.2 g/dL (12.0-16.0); Lymphocyte % 20.9 %; Mean Corpuscular HGB Conc 35 g/dL (31-36); Mean Corpuscular Hemoglobin 35 pg (27-31); Mean Corpuscular Volume 100 fL (80-97); Mean Platelet Volume 8.3 fL (7.4-10.4); Platelet Count 178 10^3/uL (150-450); Red Blood Count 3.22 10^6 /uL (3.70-4.87); Red Cell Distribution Width 15 % (10-15); White Blood Count 11.6 10^3/uL (3.5-10.8)
[2022-01-03 20:59] LABS: ALT 28 U/L (7-52); Albumin 3.5 g/dL (3.2-5.2); Albumin/Globulin Ratio 0.6 (1-3); Alkaline Phosphatase 107 U/L (35-149); Blood Urea Nitrogen 11 mg/dL (6-24); C Reactive Protein 23.99 mg/L (<8.01); CO2 Carbon Dioxide 16 mmol/L (22-32); Calcium 8.4 mg/dL (8.6-10.3); Chloride 95 mmol/L (101-111); Globulin 6.1 g/dL (2-4); Glucose 74 mg/dL (70-100); Lipase 50 U/L (11.0-82.0); Total Protein 9.6 g/dL (6.4-8.9); eGFR CKD-EPI 71.6 (>60)
[2022-01-03 21:11] LABS: Rapid COVID-19 Molecular Undetected (Undetected)
[2022-01-03 21:20] LABS: Sodium 117 mmol/L (135-145)
[2022-01-03 21:24] LABS: Alcohol, S 128 mg/dL (<13)
[2022-01-03 21:25] LABS: Anion Gap 6 mmol/L (2-11)
[2022-01-03 22:21] LABS: Magnesium 1.6 mg/dL (1.9-2.7)
[2022-01-04] MEDS ORDERED: Potassium Chloride LIQUID 20 MEQ/15 ML LIQUID PO ONE (01:13)
[2022-01-04] MEDS ORDERED: Potassium Phosphate IV 15 MMOLE in NS 0.9% 250 ml 250 ML IVPB ONE (01:13)
[2022-01-04] MEDS ORDERED: Folic Acid IV 1 MG in NS 0.9% 50 ML 50 ML IV ONE (01:14)
[2022-01-04] MEDS ORDERED: Magnesium Sulf 4 GM/100 ML IV 4,000 MG/100 ML BAG IVPB ONE (01:16)
[2022-01-04] MEDS ORDERED: Thiamine 100 MG/ML 2 ml VIAL 100 MG, Folic Acid IV 1 MG, Multiple Vitamin IV ADULT 10 M... IV ONE (01:30)
[2022-01-04 01:39] LABS: Phosphorus 3.1 mg/dL (2.5-5.0)
[2022-01-04] MEDS ORDERED: Thiamine 100 MG/ML 2 ml VIAL 100 MG in NS 0.9% 50 ML 50 ML IV SCH (02:00)
[2022-01-04] MEDS ORDERED: LORazepam 2 mg VIAL 1 ml IV PUSH SCH (02:00)
[2022-01-04] MEDS ORDERED: Lactated Ringers 1000 ml BAG 1,000 ML IV SCH (02:00)
[2022-01-04] MEDS: Thiamine 100 MG/ML 2 ml VIAL (200 mg) IM ONE ×2 (05:45→06:13)
[2022-01-04] MEDS: diPHENhydraMINE 25 mg TAB PO PRN ×2 (05:45→21:34)
[2022-01-04 06:08] LABS: ABS Eosinophils 0.2 10^3/ul (0-0.6); ABS Lymphocytes 1.1 10^3/ul (1.0-4.8); ABS Monocytes 1.1 10^3/ul (0-0.8); ABS Neutrophils 4.5 10^3/ul (1.5-7.7); Eosinophil % 2.8 %; Hematocrit 33 % (35-47); Hemoglobin 11.1 g/dL (12.0-16.0); Lymphocyte % 15.8 %; Mean Corpuscular HGB Conc 34 g/dL (31-36); Mean Corpuscular Hemoglobin 35 pg (27-31); Mean Corpuscular Volume 101 fL (80-97); Mean Platelet Volume 7.5 fL (7.4-10.4); Nucleated Red Blood Cells % 0.1; Platelet Count 181 10^3/uL (150-450); Red Blood Count 3.22 10^6 /uL (3.70-4.87); Red Cell Distribution Width 14 % (10-15); White Blood Count 6.8 10^3/uL (3.5-10.8)
[2022-01-04 06:35] LABS: Blood Urea Nitrogen 12 mg/dL (6-24); CO2 Carbon Dioxide 19 mmol/L (22-32); Calcium 8.9 mg/dL (8.6-10.3); Chloride 100 mmol/L (101-111); Glucose 104 mg/dL (70-100); Magnesium 1.6 mg/dL (1.9-2.7); Sodium 128 mmol/L (135-145); eGFR CKD-EPI 67.4 (>60)
[2022-01-04 06:46] LABS: Anion Gap 9 mmol/L (2-11)
[2022-01-04] MEDS: Vancomycin SOL ORALSYR 50 MG/ML ML PO SCH ×6 (07:03→20:18)
[2022-01-04 07:16] LABS: Phosphorus 2.5 mg/dL (2.5-5.0); Potassium Redraw 3.4 mmol/L (3.5-5.0)
[2022-01-04] MEDS ORDERED: Multivitamins ADULT w/MIN LIQ 15 ML UDC PO SCH (09:00)
[2022-01-04 09:31] LABS: Calcium 8.1 mg/dL (8.6-10.3); Potassium 3.4 mmol/L (3.5-5.0); eGFR CKD-EPI 84.2 (>60)
[2022-01-04] MEDS ORDERED: Potassium Chlor 20 meq TAB.ER PO ONE (10:09)
[2022-01-04] MEDS: Multivitamins/Minerals TAB PO SCH (10:11)
[2022-01-04 10:23] LABS: Urine Appearance Clear; Urine Bilirubin Negative (Negative); Urine Blood 1+ (Negative); Urine Color Yellow; Urine Glucose Negative (Negative); Urine Ketones Negative (Negative); Urine Nitrite Negative (Negative); Urine Protein Negative (Negative); Urine Specific Gravity 1.002 (1.002-1.030); Urine Urobilinogen Negative (Negative)
[2022-01-04 10:35] LABS: Urine Bacteria Absent (Absent); Urine Red Blood Cell Trace(0-2/hpf) (Absent); Urine White Blood Cell Absent (Absent)
[2022-01-04 22:24] LABS: Calcium 8.1 mg/dL (8.6-10.3)
[2022-01-04 22:25] LABS: Potassium 3.9 mmol/L (3.5-5.0)
[2022-01-05] MEDS: Multivitamins/Minerals TAB PO SCH (09:01)
[2022-01-05] MEDS: Vancomycin SOL ORALSYR 50 MG/ML ML PO SCH ×4 (09:01→20:53)
[2022-01-05 09:30] LABS: ABS Eosinophils 0.1 10^3/ul (0-0.6); ABS Lymphocytes 0.8 10^3/ul (1.0-4.8); ABS Monocytes 0.5 10^3/ul (0-0.8); ABS Neutrophils 2.7 10^3/ul (1.5-7.7); Eosinophil % 2.7 %; Hematocrit 31 % (35-47); Hemoglobin 10.1 g/dL (12.0-16.0); Lymphocyte % 19.5 %; Mean Corpuscular HGB Conc 32 g/dL (31-36); Mean Corpuscular Hemoglobin 34 pg (27-31); Mean Corpuscular Volume 105 fL (80-97); Mean Platelet Volume 7.4 fL (7.4-10.4); Nucleated Red Blood Cells % 0.1; Platelet Count 138 10^3/uL (150-450); Red Blood Count 2.97 10^6 /uL (3.70-4.87); Red Cell Distribution Width 14 % (10-15); White Blood Count 4.2 10^3/uL (3.5-10.8)
[2022-01-05 09:32] LABS: Blood Urea Nitrogen 7 mg/dL (6-24); CO2 Carbon Dioxide 17 mmol/L (22-32); Calcium 7.8 mg/dL (8.6-10.3); Chloride 107 mmol/L (101-111); Glucose 133 mg/dL (70-100); Sodium 131 mmol/L (135-145); eGFR CKD-EPI 93.6 (>60)
[2022-01-05 10:13] LABS: Anion Gap 7 mmol/L (2-11)
[2022-01-05] MEDS: Buprenorp/Nalox 4-1 MG FILM SL FILM SCH ×2 (11:07→20:54)
[2022-01-05] MEDS: diPHENhydraMINE 25 mg TAB PO PRN (23:57)
[2022-01-06 07:08] LABS: Calcium 7.7 mg/dL (8.6-10.3); Magnesium 1.6 mg/dL (1.9-2.7); Phosphorus 1.9 mg/dL (2.5-5.0); Potassium 3.7 mmol/L (3.5-5.0); eGFR CKD-EPI 89.4 (>60)
[2022-01-06] MEDS ORDERED: Magnesium Sulfate 2 gm BAG 2 GM/50 ML BAG IVPB ONE (08:16)
[2022-01-06] MEDS ORDERED: Potassium & Sodium Phos 250 mg = 1 PACKET PO ONE (08:18)
[2022-01-06] MEDS ORDERED: Flu vaccine *QUAD* 2021-22* 0.5 ML SYRINGE IM ONE (09:00)
[2022-01-06] MEDS ORDERED: Pneumococcal Vac 23-Polyvalent IM ONE (09:00)
[2022-01-06] MEDS: Vancomycin SOL ORALSYR 50 MG/ML ML PO SCH ×4 (09:26→22:00)
[2022-01-06] MEDS: Multivitamins/Minerals TAB PO SCH (09:34)
[2022-01-06] MEDS: Buprenorp/Nalox 4-1 MG FILM SL FILM SCH ×2 (09:34→21:47)
[2022-01-06 12:39] LABS: Urine Benzodiazepine Screen None Detected (None Detect); Urine Cannabinoids Screen None Detected (None Detect); Urine Opiates Screen None Detected (None Detect)
[2022-01-06 14:25] LABS: Urine Osmo 111 mOsm/kg (150-1150)
[2022-01-06 16:17] LABS: Calcium 8.1 mg/dL (8.6-10.3); eGFR CKD-EPI 85.5 (>60)
[2022-01-06] MEDS: diPHENhydraMINE 25 mg TAB PO PRN (22:00)
[2022-01-07 07:20] LABS: Hematocrit 29 % (35-47); Hemoglobin 9.8 g/dL (12.0-16.0); Mean Corpuscular HGB Conc 34 g/dL (31-36); Mean Corpuscular Hemoglobin 36 pg (27-31); Mean Corpuscular Volume 104 fL (80-97); Mean Platelet Volume 7.3 fL (7.4-10.4); Platelet Count 136 10^3/uL (150-450); Red Blood Count 2.75 10^6 /uL (3.70-4.87); Red Cell Distribution Width 14 % (10-15); White Blood Count 8.9 10^3/uL (3.5-10.8)
[2022-01-07 07:33] LABS: Blood Urea Nitrogen 9 mg/dL (6-24); CO2 Carbon Dioxide 26 mmol/L (22-32); Chloride 100 mmol/L (101-111); Glucose 94 mg/dL (70-100); Magnesium 2.1 mg/dL (1.9-2.7); Sodium 128 mmol/L (135-145)
[2022-01-07] MEDS ORDERED: Nicotine PATCH 7 MG/24 HR PATCH TRANSDERM SCH (09:00)
[2022-01-07] MEDS: Buprenorp/Nalox 4-1 MG FILM SL FILM SCH (09:23)
[2022-01-07] MEDS: Vancomycin SOL ORALSYR 50 MG/ML ML PO SCH (09:24)
[2022-01-07] MEDS: Multivitamins/Minerals TAB PO SCH (09:25)
[2022-01-07 09:48] LABS: Osmolality Serum 279 mOsm/kg (275-295)
[2022-01-07 10:10] LABS: Urine Chloride Concentration < 22 mmol/L; Urine Potassium Concentration 9.7 mmol/L; Urine Sodium Concentration < 18 mmol/L
[2022-01-07 10:40] LABS: Urine Osmo 232 mOsm/kg (150-1150)
[2022-01-07] MEDS ORDERED: COVID-19 VACCINE, TRIS(PFIZER)/PF 30 MCG/0.3 ML IM ONE (12:30)
[2022-01-07 12:39] VITALS: BP 93/65
[2022-01-07 13:46] LABS: Anion Gap 2 mmol/L (2-11)
== END 2022-01-07 13:35 | disposition home or self-care (01) | DRG 372 ==
LOC: ED 19:26 → SUATTDRO 01-04 01:05 → ICU 01-04 06:11 → MEDTELE 01-04 10:10
PROVIDERS: ADMIT Internal Medicine; ATTEND Internal Medicine

== ENCOUNTER 2022-06-20 14:04 | Inpatient (IN) ==
[2022-06-20] MEDS ORDERED: Naloxone 0.4 mg VIAL 0.4 mg/ml 1 ml VIAL IV PUSH ONE ×2 (15:30→18:32)
[2022-06-20] MEDS ORDERED: NS 0.9% 1000 ml BAG 1,000 ML IV ONE (17:13)
[2022-06-20 17:38] LABS: ABS Eosinophils 0.1 10^3/ul (0-0.6); ABS Lymphocytes 1.4 10^3/ul (1.0-4.8); ABS Monocytes 0.6 10^3/ul (0-0.8); Eosinophil % 2.3 %; Hematocrit 29 % (35-47); Hemoglobin 9.7 g/dL (12.0-16.0); Mean Corpuscular HGB Conc 33 g/dL (31-36); Mean Corpuscular Hemoglobin 30 pg (27-31); Mean Corpuscular Volume 90 fL (80-97); Mean Platelet Volume 7.9 fL (7.4-10.4); Nucleated Red Blood Cells % 0.1; Platelet Count 177 10^3/uL (150-450); Red Blood Count 3.27 10^6 /uL (3.70-4.87); Red Cell Distribution Width 16 % (10-15); White Blood Count 5.2 10^3/uL (3.5-10.8)
[2022-06-20 17:38] LABS: PCO2 Arterial 45 mmHg (35-45); PO2 Arterial 92 mmHg (80-100)
[2022-06-20 18:09] LABS: ALT 11 U/L (7-52); Albumin/Globulin Ratio 0.6 (1-3); Alcohol, S < 13 mg/dL (<13); Alkaline Phosphatase 88 U/L (35-149); Blood Urea Nitrogen 8 mg/dL (6-24); CO2 Carbon Dioxide 26 mmol/L (22-32); Calcium 9.4 mg/dL (8.6-10.3); Chloride 103 mmol/L (101-111); Globulin 4.9 g/dL (2-4); Glucose 100 mg/dL (70-100); Salicylate < 2.50 mg/dL (<30); Sodium 133 mmol/L (135-145); Total Protein 7.9 g/dL (6.4-8.9); eGFR CKD-EPI 83.7 (>60)
[2022-06-20 18:14] LABS: Acetaminophen < 15 mcg/mL
[2022-06-20 18:17] LABS: Anion Gap 4 mmol/L (2-11)
[2022-06-20 20:11] LABS: Urine Benzodiazepine Screen Presumptive Positive (None Detect); Urine Cannabinoids Screen None Detected (None Detect); Urine Opiates Screen None Detected (None Detect)
[2022-06-20 21:54] LABS: Urine Appearance Clear; Urine Bilirubin Negative (Negative); Urine Blood Negative (Negative); Urine Color Yellow; Urine Glucose Negative (Negative); Urine Ketones Negative (Negative); Urine Nitrite Negative (Negative); Urine Protein Negative (Negative); Urine Urobilinogen 0.2 (Negative) (Negative); Urine pH 5.5 (5.0-9.0)
[2022-06-20] MEDS ORDERED: Thiamine 100 MG/ML 2 ml VIAL 100 MG, Folic Acid IV 1 MG, Multiple Vitamin IV ADULT 10 M... IV ONE (23:00)
[2022-06-20 23:18] LABS: TSH Ultra Thyroid Stim Horm 1.61 mcIU/mL (0.34-5.60)
[2022-06-21 04:59] LABS: C Reactive Protein 2.17 mg/L (<8.01)
[2022-06-21 06:33] LABS: ABS Eosinophils 0.2 10^3/ul (0-0.6); ABS Lymphocytes 1.1 10^3/ul (1.0-4.8); ABS Monocytes 0.4 10^3/ul (0-0.8); ABS Neutrophils 1.9 10^3/ul (1.5-7.7); Eosinophil % 4.5 %; Hematocrit 31 % (35-47); Hemoglobin 10.2 g/dL (12.0-16.0); Lymphocyte % 30.1 %; Mean Corpuscular HGB Conc 33 g/dL (31-36); Mean Corpuscular Hemoglobin 30 pg (27-31); Mean Corpuscular Volume 91 fL (80-97); Mean Platelet Volume 7.7 fL (7.4-10.4); Nucleated Red Blood Cells % 0.1; Platelet Count 178 10^3/uL (150-450); Red Blood Count 3.42 10^6 /uL (3.70-4.87); Red Cell Distribution Width 16 % (10-15); White Blood Count 3.6 10^3/uL (3.5-10.8)
[2022-06-21 06:56] LABS: High Sens Troponin Baseline 6 pg/mL (<15)
[2022-06-21 07:02] LABS: Anion Gap 7 mmol/L (2-11); Blood Urea Nitrogen 8 mg/dL (6-24); CO2 Carbon Dioxide 24 mmol/L (22-32); Calcium 8.7 mg/dL (8.6-10.3); Chloride 107 mmol/L (101-111); Glucose 77 mg/dL (70-100); Potassium 3.9 mmol/L (3.5-5.0); Sodium 138 mmol/L (135-145); eGFR CKD-EPI 86.2 (>60)
[2022-06-21 08:13] LABS: High Sensitivity Troponin 1 Hr 5 pg/mL (<15)
[2022-06-21] MEDS ORDERED: Buprenorp/Nalox 8-2 MG SL TAB PO SCH (10:00)
[2022-06-21] MEDS ORDERED: Famotidine IV 10 MG/ML 2 ml VIAL (20 mg) ONE (10:11)
[2022-06-21] MEDS: Multivitamins/Minerals TAB PO SCH (10:26)
[2022-06-21] MEDS: Nicotine PATCH 21 MG/24 HR PATCH TRANSDERM SCH (12:30)
[2022-06-21] MEDS: Lactated Ringers 1000 ml BAG 1,000 ML IV SCH ×2 (12:30→17:53)
[2022-06-21] MEDS: Acetaminophen IV 1 GM/100ML 100 ML IV PRN ×2 (12:30→17:53)
[2022-06-21 14:16] LABS: % Iron Saturation 25 % (15-55); Iron 115 ug/dL (50-212); Total Iron Binding Capacity 468 mcg/dL (250-450); Transferrin 334 mg/dL (203-362); Unsaturated Iron Binding 353 ug/dL
[2022-06-21 14:37] LABS: Ferritin 12.8 ng/mL (11-307)
[2022-06-21 14:41] LABS: Vitamin B12 1110 pg/mL (180-914)
[2022-06-21 14:42] LABS: Folate > 20.00 ng/mL (5.90-24.80)
[2022-06-21 17:25] LABS: Urine Benzodiazepine Screen Presumptive Positive (None Detect); Urine Cannabinoids Screen None Detected (None Detect); Urine Opiates Screen None Detected (None Detect)
[2022-06-21 18:57] LABS: Urine Buprenorphine Screen Presumptive Positive (None Detect); Urine Fentanyl Screen None Detected (None Detect); Urine Hydrocodone Screen None Detected (None Detect)
[2022-06-22] MEDS: Lactated Ringers 1000 ml BAG 1,000 ML IV SCH ×2 (00:40→07:21)
[2022-06-22] MEDS: Acetaminophen IV 1 GM/100ML 100 ML IV PRN ×2 (00:43→07:20)
[2022-06-22 05:43] LABS: ABS Eosinophils 0.2 10^3/ul (0-0.6); ABS Monocytes 0.4 10^3/ul (0-0.8); ABS Neutrophils 2.1 10^3/ul (1.5-7.7); Eosinophil % 4.7 %; Hematocrit 27 % (35-47); Hemoglobin 8.9 g/dL (12.0-16.0); Lymphocyte % 27.5 %; Mean Corpuscular HGB Conc 33 g/dL (31-36); Mean Corpuscular Hemoglobin 29 pg (27-31); Mean Corpuscular Volume 90 fL (80-97); Mean Platelet Volume 7.4 fL (7.4-10.4); Nucleated Red Blood Cells % 0.1; Platelet Count 146 10^3/uL (150-450); Red Blood Count 3.04 10^6 /uL (3.70-4.87); Red Cell Distribution Width 16 % (10-15); White Blood Count 3.6 10^3/uL (3.5-10.8)
[2022-06-22 05:50] LABS: Calcium 7.9 mg/dL (8.6-10.3); Potassium 4.3 mmol/L (3.5-5.0); eGFR CKD-EPI 82.5 (>60)
[2022-06-22] MEDS: Nicotine PATCH 21 MG/24 HR PATCH TRANSDERM SCH (07:19)
[2022-06-22] MEDS: Multivitamins/Minerals TAB PO SCH (07:20)
[2022-06-22] MEDS ORDERED: Furosemide 20 mg/2 ml IV VIAL IV SLOW PU ONE (13:05)
[2022-06-22] MEDS ORDERED: Albuterol HFA INHALER 8 gm MDI INH PRN (14:35)
[2022-06-22 14:52] LABS: Urine Benzodiazepine Screen Presumptive Positive (None Detect); Urine Buprenorphine Screen Presumptive Positive (None Detect); Urine Cannabinoids Screen None Detected (None Detect); Urine Fentanyl Screen None Detected (None Detect); Urine Hydrocodone Screen None Detected (None Detect); Urine Opiates Screen None Detected (None Detect)
[2022-06-23 08:29] LABS: ABS Eosinophils 0.2 10^3/ul (0-0.6); ABS Lymphocytes 1.6 10^3/ul (1.0-4.8); ABS Monocytes 0.3 10^3/ul (0-0.8); ABS Neutrophils 2.9 10^3/ul (1.5-7.7); Eosinophil % 3.6 %; Hematocrit 33 % (35-47); Hemoglobin 10.8 g/dL (12.0-16.0); Lymphocyte % 32.1 %; Mean Corpuscular HGB Conc 33 g/dL (31-36); Mean Corpuscular Hemoglobin 30 pg (27-31); Mean Corpuscular Volume 91 fL (80-97); Mean Platelet Volume 7.3 fL (7.4-10.4); Nucleated Red Blood Cells % 0.1; Platelet Count 170 10^3/uL (150-450); Red Blood Count 3.64 10^6 /uL (3.70-4.87); Red Cell Distribution Width 16 % (10-15); White Blood Count 5.1 10^3/uL (3.5-10.8)
[2022-06-23] MEDS: Nicotine PATCH 21 MG/24 HR PATCH TRANSDERM SCH (09:05)
[2022-06-23] MEDS: Multivitamins/Minerals TAB PO SCH (09:05)
[2022-06-23] MEDS ORDERED: Senna TAB 8.6 mg TAB PO PRN (09:38)
[2022-06-23] MEDS: Polyethylene Glycol 3350 17 GM PACKET PO SCH (12:40)
[2022-06-23] MEDS: Magnesium Hydroxide LIQ 30 ML UDC PO SCH ×2 (12:40→20:15)
[2022-06-23] MEDS ORDERED: Enoxaparin 40 MG/0.4 ML SYR SUBCUT SCH (18:00)
[2022-06-24] MEDS: Nicotine PATCH 21 MG/24 HR PATCH TRANSDERM SCH (10:43)
[2022-06-24] MEDS: Magnesium Hydroxide LIQ 30 ML UDC PO SCH (10:43)
[2022-06-24] MEDS: Polyethylene Glycol 3350 17 GM PACKET PO SCH (10:43)
[2022-06-24] MEDS: Multivitamins/Minerals TAB PO SCH (10:45)
[2022-06-24 12:20] VITALS: BP 102/62
[2022-06-24] MEDS ORDERED: COVID-19 VACCINE, TRIS(PFIZER)/PF 30 MCG/0.3 ML IM ONE (15:30)
== END 2022-06-24 17:15 | disposition home or self-care (01) | DRG 918 ==
LOC: ED 14:04 → EDHOLD 14:04 → MEDTELE 06-21 07:24 → SUATTDRO 06-23 16:15
PROVIDERS: ADMIT Internal Medicine; ATTEND Hospitalist

== ENCOUNTER 2022-10-18 07:32 | Inpatient (IN) ==
[2022-10-18] MEDS ORDERED: Ondansetron 4 mg VIAL 2 MG/ML 2 ml VIAL IV PRN ×2 (07:39→12:54)
[2022-10-18] MEDS ORDERED: Pantoprazole VIAL 40 MG VIAL ONE (07:45)
[2022-10-18] MEDS ORDERED: Pantoprazole VIAL 40 MG VIAL IV ONE (08:04)
[2022-10-18] MEDS ORDERED: NS 0.9% 1000 ml BAG 1,000 ML IV ONE (08:27)
[2022-10-18] MEDS ORDERED: NS 0.9% 1000 ml BAG 2,000 ML IV ONE (08:31)
[2022-10-18 08:40] LABS: ABS Basophils 0.1 10^3/ul (0-0.2); ABS Neutrophils 9.4 10^3/ul (1.5-7.7); Eosinophil % 0.3 %; Hematocrit 34 % (35-47); Hemoglobin 11.1 g/dL (12.0-16.0); Lymphocyte % 15.8 %; Mean Corpuscular HGB Conc 33 g/dL (31-36); Mean Corpuscular Hemoglobin 33 pg (27-31); Mean Corpuscular Volume 100 fL (80-97); Mean Platelet Volume 8.3 fL (7.4-10.4); Platelet Count 194 10^3/uL (150-450); Red Cell Distribution Width 15 % (10-15); White Blood Count 12.5 10^3/uL (3.5-10.8)
[2022-10-18] MEDS ORDERED: Lorazepam PYXIS KEY PRN (09:28)
[2022-10-18] MEDS ORDERED: LORazepam 2 mg VIAL 1 ml IV PUSH ONE (09:28)
[2022-10-18 09:54] LABS: Activated Partial Thrombo Time 31.5 seconds (26.0-38.0); INR 1.72 (0.89-1.11)
[2022-10-18 10:21] LABS: ABS Basophils 0.1 10^3/ul (0-0.2); ABS Lymphocytes 1.4 10^3/ul (1.0-4.8); ABS Monocytes 1.3 10^3/ul (0-0.8); ABS Neutrophils 8.1 10^3/ul (1.5-7.7); Eosinophil % 0.2 %; Hematocrit 29 % (35-47); Hemoglobin 9.7 g/dL (12.0-16.0); Lymphocyte % 12.6 %; Mean Corpuscular HGB Conc 33 g/dL (31-36); Mean Corpuscular Hemoglobin 33 pg (27-31); Mean Corpuscular Volume 99 fL (80-97); Mean Platelet Volume 8.4 fL (7.4-10.4); Nucleated Red Blood Cells % 0.1; Platelet Count 142 10^3/uL (150-450); Red Blood Count 2.95 10^6 /uL (3.70-4.87); Red Cell Distribution Width 15 % (10-15); White Blood Count 10.8 10^3/uL (3.5-10.8)
[2022-10-18 10:29] LABS: CRP High Sensitivity 3.82 mg/L (<2.00)
[2022-10-18 10:30] LABS: Albumin 2.6 g/dL (3.2-5.2); Albumin/Globulin Ratio 0.7 (1-3); Calcium 8.6 mg/dL (8.6-10.3); Total Bilirubin 1.3 mg/dL (0.2-1.0); Total Protein 6.6 g/dL (6.4-8.9); eGFR CKD-EPI 57.8 (>60)
[2022-10-18] MEDS ORDERED: fentaNYL 100 mcg/2 ml 50 MCG/ML VIAL ONE (11:25)
[2022-10-18] MEDS ORDERED: Midazolam 5 mg/5 ml VIAL 1 mg/ml 5 ml VIAL (5 mg) ONE (11:25)
[2022-10-18 11:59] LABS: Erythrocyte Sed Rate 51 mm/Hr (0-29)
[2022-10-18] MEDS ORDERED: Thiamine 100 MG/ML 2 ml VIAL (200 mg) IM ONE (12:49)
[2022-10-18 16:23] LABS: Urine Appearance Cloudy; Urine Bilirubin Negative (Negative); Urine Blood Negative (Negative); Urine Color Yellow; Urine Glucose Negative (Negative); Urine Ketones Trace (Negative); Urine Nitrite Negative (Negative); Urine Protein Negative (Negative); Urine Specific Gravity 1.015 (1.002-1.030); Urine Urobilinogen Negative (Negative)
[2022-10-18 16:46] LABS: Urine Benzodiazepine Screen Presumptive Positive (None Detect); Urine Cannabinoids Screen None Detected (None Detect); Urine Opiates Screen None Detected (None Detect)
[2022-10-18] MEDS: Multivitamins/Minerals TAB PO SCH (17:49)
[2022-10-18] MEDS: Lactated Ringers 1000 ml BAG 1,000 ML IV SCH (20:29)
[2022-10-18 20:42] LABS: Hematocrit 28 % (35-47); Mean Corpuscular HGB Conc 32 g/dL (31-36); Mean Corpuscular Hemoglobin 33 pg (27-31); Mean Corpuscular Volume 101 fL (80-97); Mean Platelet Volume 8.1 fL (7.4-10.4); Platelet Count 149 10^3/uL (150-450); Red Blood Count 2.74 10^6 /uL (3.70-4.87); Red Cell Distribution Width 15 % (10-15); White Blood Count 13.2 10^3/uL (3.5-10.8)
[2022-10-18] MEDS: Pantoprazole VIAL 40 MG VIAL IV SCH (20:46)
[2022-10-19] MEDS: Lactated Ringers 1000 ml BAG 1,000 ML IV SCH ×2 (06:01→17:10)
[2022-10-19 07:50] LABS: Hematocrit 25 % (35-47); Hemoglobin 8.2 g/dL (12.0-16.0); Mean Corpuscular HGB Conc 33 g/dL (31-36); Mean Corpuscular Hemoglobin 33 pg (27-31); Mean Corpuscular Volume 101 fL (80-97); Mean Platelet Volume 7.8 fL (7.4-10.4); Platelet Count 129 10^3/uL (150-450); Red Blood Count 2.46 10^6 /uL (3.70-4.87); Red Cell Distribution Width 15 % (10-15); White Blood Count 8.5 10^3/uL (3.5-10.8)
[2022-10-19 08:00] LABS: INR 1.51 (0.89-1.11)
[2022-10-19 08:21] LABS: Calcium 8.2 mg/dL (8.6-10.3); Phosphorus 2.3 mg/dL (2.5-5.0); Potassium 3.9 mmol/L (3.5-5.0); eGFR CKD-EPI 52.2 (>60)
[2022-10-19] MEDS: Pantoprazole VIAL 40 MG VIAL IV SCH ×2 (09:31→20:13)
[2022-10-19] MEDS: Multivitamins/Minerals TAB PO SCH (09:35)
[2022-10-19 10:10] LABS: Magnesium 1.3 mg/dL (1.9-2.7)
[2022-10-19] MEDS ORDERED: Nicotine GUM 4MG FRUIT FLAVOR PO PRN (10:29)
[2022-10-19] MEDS ORDERED: Potassium Phosphate IV 10 MMOLE in NS 0.9% 250 ml 250 ML IVPB ONE (11:30)
[2022-10-19] MEDS: Nicotine PATCH 21 MG/24 HR PATCH TRANSDERM SCH (11:45)
[2022-10-19] MEDS ORDERED: Magnesium Sulf 4 GM/100 ML IV 4,000 MG/100 ML BAG IVPB ONE (16:18)
[2022-10-20] MEDS ORDERED: Magnesium Sulf 4 GM/100 ML IV 4,000 MG/100 ML BAG IVPB ONE (07:28)
[2022-10-20] MEDS: Nicotine PATCH 21 MG/24 HR PATCH TRANSDERM SCH (08:44)
[2022-10-20] MEDS: Pantoprazole VIAL 40 MG VIAL IV SCH ×2 (08:46→20:34)
[2022-10-20] MEDS: Multivitamins/Minerals TAB PO SCH (08:47)
[2022-10-20] MEDS: Lactated Ringers 1000 ml BAG 1,000 ML IV SCH (13:05)
[2022-10-20] MEDS ORDERED: NS 0.9% 1000 ml BAG 400 ML IV ONE (14:15)
[2022-10-20 17:12] LABS: Hematocrit 22 % (35-47); Hemoglobin 7.2 g/dL (12.0-16.0); Mean Corpuscular HGB Conc 33 g/dL (31-36); Mean Corpuscular Hemoglobin 34 pg (27-31); Mean Corpuscular Volume 103 fL (80-97); Mean Platelet Volume 7.8 fL (7.4-10.4); Platelet Count 115 10^3/uL (150-450); Red Blood Count 2.14 10^6 /uL (3.70-4.87); Red Cell Distribution Width 15 % (10-15); White Blood Count 6.3 10^3/uL (3.5-10.8)
[2022-10-20 17:57] LABS: Calcium 7.1 mg/dL (8.6-10.3); Phosphorus 1.9 mg/dL (2.5-5.0); Potassium 3.9 mmol/L (3.5-5.0); eGFR CKD-EPI 62.4 (>60)
[2022-10-21 06:45] LABS: Magnesium 2.5 mg/dL (1.9-2.7); Potassium 4.3 mmol/L (3.5-5.0)
[2022-10-21 07:15] LABS: ABS Eosinophils 0.2 10^3/ul (0-0.6); ABS Lymphocytes 1.3 10^3/ul (1.0-4.8); ABS Monocytes 0.5 10^3/ul (0-0.8); ABS Neutrophils 3.3 10^3/ul (1.5-7.7); Eosinophil % 3.3 %; Hematocrit 22 % (35-47); Hemoglobin 7.3 g/dL (12.0-16.0); Lymphocyte % 24.9 %; Mean Corpuscular HGB Conc 33 g/dL (31-36); Mean Corpuscular Hemoglobin 34 pg (27-31); Mean Corpuscular Volume 102 fL (80-97); Mean Platelet Volume 7.5 fL (7.4-10.4); Nucleated Red Blood Cells % 0.1; Platelet Count 111 10^3/uL (150-450); Red Blood Count 2.15 10^6 /uL (3.70-4.87); Red Cell Distribution Width 15 % (10-15); White Blood Count 5.3 10^3/uL (3.5-10.8)
[2022-10-21] MEDS: Pantoprazole VIAL 40 MG VIAL IV SCH ×2 (08:19→20:25)
[2022-10-21] MEDS: Nicotine PATCH 21 MG/24 HR PATCH TRANSDERM SCH (08:19)
[2022-10-21] MEDS: Multivitamins/Minerals TAB PO SCH (08:20)
[2022-10-21] MEDS ORDERED: fentaNYL 100 mcg/2 ml 50 MCG/ML VIAL ONE (14:50)
[2022-10-21] MEDS ORDERED: Midazolam 5 mg/5 ml VIAL 1 mg/ml 5 ml VIAL (5 mg) ONE (14:50)
[2022-10-22 06:50] LABS: Hematocrit 23 % (35-47); Hemoglobin 7.6 g/dL (12.0-16.0); Mean Corpuscular HGB Conc 33 g/dL (31-36); Mean Corpuscular Hemoglobin 34 pg (27-31); Mean Corpuscular Volume 103 fL (80-97); Mean Platelet Volume 7.7 fL (7.4-10.4); Platelet Count 127 10^3/uL (150-450); Red Blood Count 2.25 10^6 /uL (3.70-4.87); Red Cell Distribution Width 16 % (10-15); White Blood Count 5.6 10^3/uL (3.5-10.8)
[2022-10-22 07:32] LABS: Calcium 6.6 mg/dL (8.6-10.3); Potassium 4.5 mmol/L (3.5-5.0)
[2022-10-22 07:38] LABS: Phosphorus 2.3 mg/dL (2.5-5.0)
[2022-10-22] MEDS: Nicotine PATCH 21 MG/24 HR PATCH TRANSDERM SCH (08:22)
[2022-10-22] MEDS: Pantoprazole VIAL 40 MG VIAL IV SCH (08:25)
[2022-10-22] MEDS: Multivitamins/Minerals TAB PO SCH (08:25)
[2022-10-22 10:19] LABS: Magnesium 2.4 mg/dL (1.9-2.7)
[2022-10-22 11:33] VITALS: BP 107/71
== END 2022-10-22 13:50 | disposition home or self-care (01) | DRG 381 ==
LOC: EDHOLD 07:32 → ED 07:32 → SUATTDRO 11:26 → MED 19:59
PROVIDERS: ADMIT Internal Medicine; ATTEND Hospitalist

== ENCOUNTER 2022-11-02 19:16 | Inpatient (IN) ==
[2022-11-02] MEDS: NS 0.9% 1000 ml BAG 1,000 ML IV ONE ×2 (19:56→20:38)
[2022-11-02 20:08] LABS: INR 1.49 (0.89-1.11)
[2022-11-02 20:10] LABS: ABS Basophils 0.1 10^3/ul (0-0.2); ABS Eosinophils 0.3 10^3/ul (0-0.6); ABS Lymphocytes 2.2 10^3/ul (1.0-4.8); ABS Monocytes 1.1 10^3/ul (0-0.8); ABS Neutrophils 4.5 10^3/ul (1.5-7.7); Eosinophil % 4.2 %; Hematocrit 24 % (35-47); Hemoglobin 7.7 g/dL (12.0-16.0); Lymphocyte % 27.3 %; Mean Corpuscular HGB Conc 32 g/dL (31-36); Mean Corpuscular Hemoglobin 31 pg (27-31); Mean Corpuscular Volume 95 fL (80-97); Mean Platelet Volume 7.8 fL (7.4-10.4); Platelet Count 217 10^3/uL (150-450); Red Blood Count 2.51 10^6 /uL (3.70-4.87); Red Cell Distribution Width 16 % (10-15); White Blood Count 8.2 10^3/uL (3.5-10.8)
[2022-11-02 20:31] LABS: Albumin 2.6 g/dL (3.2-5.2); Albumin/Globulin Ratio 0.6 (1-3); Calcium 7.8 mg/dL (8.6-10.3); Globulin 4.2 g/dL (2-4); Total Bilirubin 0.6 mg/dL (0.2-1.0); Total Protein 6.8 g/dL (6.4-8.9); eGFR CKD-EPI 40.8 (>60)
[2022-11-02 20:39] LABS: Potassium 2.4 mmol/L (3.5-5.0)
[2022-11-02] MEDS: KCL 20 MEQ/100 ML IVPREMIX 20 MEQ/100 ML BAG IV SCH ×2 (20:55→22:25)
[2022-11-02] MEDS ORDERED: Potassium Chlor 20 meq TAB.ER PO ONE (21:19)
[2022-11-02 21:23] LABS: High Sensitivity Troponin 1 Hr 3 pg/mL (<15)
[2022-11-02] MEDS ORDERED: Hydrocortisone INJ 100 MG/2ML 2 ML VIAL IV ONE (21:24)
[2022-11-02] MEDS ORDERED: NS 0.9% 1000 ml BAG 1,000 ML IV ONE (21:24)
[2022-11-02] MEDS ORDERED: Magnesium Sulf 4 GM/100 ML IV 4,000 MG/100 ML BAG IVPB ONE (22:21)
[2022-11-02] MEDS: Lactated Ringers 1000 ml BAG 1,000 ML IV SCH (23:27)
[2022-11-02 23:43] LABS: Urine Appearance Slightly Cloudy; Urine Bilirubin Negative (Negative); Urine Blood Negative (Negative); Urine Color Yellow; Urine Glucose Negative (Negative); Urine Ketones Negative (Negative); Urine Nitrite Negative (Negative); Urine Protein Negative (Negative); Urine Urobilinogen 0.2 (Negative) (Negative)
[2022-11-02 23:48] LABS: Urine Bacteria 1+ (Absent); Urine Red Blood Cell Trace(0-2/hpf) (Absent); Urine Squamous Epithelial Cell Present (Absent); Urine White Blood Cell Trace(0-5/hpf) (Absent)
[2022-11-03 01:03] LABS: Urine Benzodiazepine Screen None Detected (None Detect); Urine Cannabinoids Screen None Detected (None Detect); Urine Opiates Screen None Detected (None Detect)
[2022-11-03 02:23] LABS: Calcium 6.9 mg/dL (8.6-10.3); Magnesium 2.2 mg/dL (1.9-2.7); Potassium 3.2 mmol/L (3.5-5.0); eGFR CKD-EPI 44.7 (>60)
[2022-11-03] MEDS ORDERED: Potassium Chlor 20 meq TAB.ER PO ONE (02:33)
[2022-11-03] MEDS: Lactated Ringers 1000 ml BAG 1,000 ML IV SCH ×3 (05:39→22:44)
[2022-11-03 05:51] LABS: ABS Lymphocytes 0.8 10^3/ul (1.0-4.8); ABS Monocytes 0.2 10^3/ul (0-0.8); ABS Neutrophils 4.2 10^3/ul (1.5-7.7); Eosinophil % 0.7 %; Hematocrit 23 % (35-47); Hemoglobin 7.3 g/dL (12.0-16.0); Lymphocyte % 14.8 %; Mean Corpuscular HGB Conc 32 g/dL (31-36); Mean Corpuscular Hemoglobin 30 pg (27-31); Mean Corpuscular Volume 95 fL (80-97); Mean Platelet Volume 7.5 fL (7.4-10.4); Nucleated Red Blood Cells % 0.1; Platelet Count 188 10^3/uL (150-450); Red Blood Count 2.43 10^6 /uL (3.70-4.87); Red Cell Distribution Width 16 % (10-15); White Blood Count 5.2 10^3/uL (3.5-10.8)
[2022-11-03 06:35] LABS: Albumin 2.3 g/dL (3.2-5.2); Albumin/Globulin Ratio 0.6 (1-3); Calcium 7.2 mg/dL (8.6-10.3); Globulin 3.6 g/dL (2-4); Potassium 3.3 mmol/L (3.5-5.0); Total Bilirubin 0.4 mg/dL (0.2-1.0); Total Protein 5.9 g/dL (6.4-8.9); eGFR CKD-EPI 48.9 (>60)
[2022-11-03] MEDS: KCL 20 MEQ/100 ML IVPREMIX 20 MEQ/100 ML BAG IV SCH ×2 (16:17→19:58)
[2022-11-03] MEDS: NS 0.9% 1,000 ML IV ONE ×2 (19:00→20:06)
[2022-11-03] MEDS ORDERED: Lidocaine PATCH 5% PATCH TRANSDERM ONE (20:06)
[2022-11-03 20:41] LABS: Calcium 6.7 mg/dL (8.6-10.3); eGFR CKD-EPI 58.4 (>60)
[2022-11-04] MEDS ORDERED: guaiFENesin 100 mg/5 ml LIQ unit dose cup PO PRN (02:28)
[2022-11-04 04:15] LABS: Urine Appearance Clear; Urine Color Yellow
[2022-11-04 04:16] LABS: Urine Bilirubin Negative (Negative); Urine Blood Negative (Negative); Urine Glucose Negative (Negative); Urine Ketones Negative (Negative); Urine Nitrite Negative (Negative); Urine Protein Negative (Negative); Urine Specific Gravity 1.015 (1.005-1.030); Urine Urobilinogen 0.2 (Negative) (Negative)
[2022-11-04 07:51] LABS: Hematocrit 23 % (35-47); Hemoglobin 7.4 g/dL (12.0-16.0); Mean Corpuscular HGB Conc 32 g/dL (31-36); Mean Corpuscular Hemoglobin 31 pg (27-31); Mean Corpuscular Volume 97 fL (80-97); Mean Platelet Volume 7.8 fL (7.4-10.4); Platelet Count 196 10^3/uL (150-450); Red Blood Count 2.39 10^6 /uL (3.70-4.87); Red Cell Distribution Width 16 % (10-15)
[2022-11-04 08:22] LABS: Magnesium 1.6 mg/dL (1.9-2.7); Potassium 4.6 mmol/L (3.5-5.0); eGFR CKD-EPI 66.9 (>60)
[2022-11-04] MEDS ORDERED: Magnesium Sulfate IV 3 GM in NS 0.9% 100 ml BAG 100 ML IVPB ONE (08:50)
[2022-11-04] MEDS ORDERED: Lactated Ringers 1000 ml BAG 1,000 ML IV SCH (09:00)
[2022-11-04] MEDS: guaiFENesin 100 mg/5 ml LIQ unit dose cup PO SCH ×2 (10:17→18:19)
[2022-11-04] MEDS ORDERED: Enoxaparin 30 MG/0.3 ML SYR SUBCUT SCH (14:00)
[2022-11-05] MEDS: guaiFENesin 100 mg/5 ml LIQ unit dose cup PO SCH ×2 (04:04→08:26)
[2022-11-05 06:15] LABS: ABS Eosinophils 0.4 10^3/ul (0-0.6); ABS Lymphocytes 1.5 10^3/ul (1.0-4.8); ABS Monocytes 0.7 10^3/ul (0-0.8); ABS Neutrophils 3.5 10^3/ul (1.5-7.7); Eosinophil % 5.9 %; Hematocrit 24 % (35-47); Hemoglobin 7.6 g/dL (12.0-16.0); Lymphocyte % 24.8 %; Mean Corpuscular HGB Conc 32 g/dL (31-36); Mean Corpuscular Hemoglobin 31 pg (27-31); Mean Corpuscular Volume 97 fL (80-97); Mean Platelet Volume 7.6 fL (7.4-10.4); Nucleated Red Blood Cells % 0.1; Platelet Count 195 10^3/uL (150-450); Red Blood Count 2.44 10^6 /uL (3.70-4.87); Red Cell Distribution Width 16 % (10-15); White Blood Count 6.1 10^3/uL (3.5-10.8)
[2022-11-05 06:20] LABS: Calcium 7.1 mg/dL (8.6-10.3); Magnesium 1.9 mg/dL (1.9-2.7); eGFR CKD-EPI 82.5 (>60)
[2022-11-05 10:48] VITALS: BP 90/62
[2022-11-05] MEDS ORDERED: Enoxaparin 40 MG/0.4 ML SYR SUBCUT SCH (14:00)
== END 2022-11-05 14:15 | disposition home or self-care (01) | DRG 312 ==
LOC: ED 19:16 → EDHOLD 19:16 → SUATTDRO 22:23 → EDHOLD 11-03 11:30 → MED 11-03 12:52
PROVIDERS: ADMIT Hospitalist; ATTEND Internal Medicine

== ENCOUNTER 2023-12-24 00:52 | Inpatient (IN) ==
[2023-12-24] MEDS ORDERED: Albuterol 2.5mg/3 ml (0.083%) NEB.SOLN INH ONE (02:00)
[2023-12-24 04:29] LABS: Hematocrit 28.9 % (35-45); Hemoglobin 9.9 g/dL (11.5-14.3); Mean Corpuscular Hemoglobin 29.5 pg (27-33); Mean Corpuscular Hgb Conc 34.1 g/dL (31-36); Mean Corpuscular Volume 86.4 fL (80-97); Platelet Count 238 10^3/uL (150-450); Red Blood Count 3.35 10^6/uL (3.63-4.92); Red Cell Distribution Width 17.5 % (12-17); White Blood Count 12.7 10^3/uL (3.8-11.8)
[2023-12-24 04:39] LABS: INR 1.35 (0.83-1.13)
[2023-12-24] MEDS ORDERED: methylPREDNISolone SOD SUCC 125 mg 2 ML VIAL IV ONE (04:54)
[2023-12-24 05:07] LABS: Albumin/Globulin Ratio 0.6 (1-3); Calcium 9.7 mg/dL (8.6-10.3); Creatinine, Serum 1.27 mg/dL (0.51-0.95); Globulin 5.2 g/dL (2-4); Total Bilirubin 0.7 mg/dL (0.2-1.0); Total Protein 8.2 g/dL (6.4-8.9); eGFR CKD-EPI 49.9 (>60)
[2023-12-24 05:20] LABS: Potassium 3.6 mmol/L (3.5-5.0)
[2023-12-24 05:26] LABS: ABS Basophils 0.1 10^3/uL (0.0-0.1); ABS Lymphocytes 1.1 10^3/uL (1.0-4.8); ABS Monocytes 1.1 10^3/uL (0.0-0.9); ABS Neutrophils 10.5 10^3/uL (1.5-7.6); ABS Nucleated RBC 0.01 10^3/ul; Anisocytosis 1+; Eosinophil % 0.2 %; Lymphocyte % 8.4 %; Nucleated Red Blood Cells % 0.1 %/100WBC (0.0-0.8)
[2023-12-24] MEDS ORDERED: cefTRIAXone 1 gm/50 mL D5W 1 GM/50 ML BAG IV SCH (06:15)
[2023-12-24] MEDS ORDERED: Azithromycin 500 mg/250 ml NS 500 MG/250 ML BAG IVPB SCH (07:00)
[2023-12-24] MEDS ORDERED: Albuterol/Ipratropium NEB.SOL (2.5/0.5 MG) 3 ML NEB.SOLN INH PRN (07:05)
[2023-12-24] MEDS ORDERED: Nicotine GUM 2MG FRUIT FLAVOR PO PRN (07:06)
[2023-12-24] MEDS: Enoxaparin 40 MG/0.4 ML SYR SUBCUT SCH (07:49)
[2023-12-24 08:03] LABS: C Reactive Protein 102.31 mg/L (<8.01)
[2023-12-24 11:22] LABS: % Iron Saturation 5 % (15-55); .Transferrin 266 mg/dL (203-362); Iron < 20 ug/dL (50-212); Total Iron Binding Capacity 372 mcg/dL (250-450); Unsaturated Iron Binding 352 ug/dL
[2023-12-24] MEDS: NS 0.9% 1000 ml BAG 1,000 ML IV SCH ×2 (12:20→20:17)
[2023-12-24] MEDS ORDERED: methylPREDNISolone SOD SUCC 40 mg/ml 1 ml VIAL IV SCH (13:00)
[2023-12-24] MEDS ORDERED: Gabapentin 600 mg TAB (NF) PO SCH (21:00)
[2023-12-25] MEDS: NS 0.9% 1000 ml BAG 1,000 ML IV SCH (04:31)
[2023-12-25 08:21] LABS: ABS Lymphocytes 0.4 10^3/uL (1.0-4.8); ABS Monocytes 0.4 10^3/uL (0.0-0.9); ABS Neutrophils 5.6 10^3/uL (1.5-7.6); ABS Nucleated RBC 0.01 10^3/ul; Eosinophil % 0.1 %; Hematocrit 27.8 % (35-45); Hemoglobin 9.3 g/dL (11.5-14.3); Lymphocyte % 6.3 %; Mean Corpuscular Hemoglobin 29.2 pg (27-33); Mean Corpuscular Hgb Conc 33.5 g/dL (31-36); Mean Platelet Volume 7.4 fL (7.5-11.2); Nucleated Red Blood Cells % 0.1 %/100WBC (0.0-0.8); Platelet Count 205 10^3/uL (150-450); Red Blood Count 3.19 10^6/uL (3.63-4.92); Red Cell Distribution Width 18.1 % (12-17); White Blood Count 6.3 10^3/uL (3.8-11.8)
[2023-12-25] MEDS: cefTRIAXone 1 gm/50 mL D5W 1 GM/50 ML BAG IV SCH (08:30)
[2023-12-25] MEDS: Enoxaparin 40 MG/0.4 ML SYR SUBCUT SCH (08:31)
[2023-12-25 08:56] LABS: Albumin 2.6 g/dL (3.2-5.2); Albumin/Globulin Ratio 0.6 (1-3); C Reactive Protein 71.36 mg/L (<8.01); Calcium 7.8 mg/dL (8.6-10.3); Creatinine, Serum 0.92 mg/dL (0.51-0.95); Globulin 4.2 g/dL (2-4); Potassium 3.6 mmol/L (3.5-5.0); Total Bilirubin 0.4 mg/dL (0.2-1.0); Total Protein 6.8 g/dL (6.4-8.9); eGFR CKD-EPI 73.5 (>60)
[2023-12-25] MEDS ORDERED: Influenza vaccine *QUAD* *2023-24* 0.5 ML SYRINGE IM ONE (09:00)
[2023-12-25] MEDS ORDERED: Gabapentin 600 mg TAB (NF) PO SCH (09:00)
[2023-12-25] MEDS: Azithromycin 500 mg/250 ml NS 500 MG/250 ML BAG IVPB SCH (11:26)
[2023-12-25 11:36] LABS: Magnesium 1.5 mg/dL (1.9-2.7)
[2023-12-25] MEDS: Magnesium Sulfate IV 1GM/100ML 1 GM/100 ML BAG IV SCH ×3 (13:41→18:44)
[2023-12-26 05:52] LABS: Hematocrit 30.2 % (35-45); Mean Corpuscular Hgb Conc 33.1 g/dL (31-36); Mean Corpuscular Volume 87.7 fL (80-97); Mean Platelet Volume 7.4 fL (7.5-11.2); Platelet Count 206 10^3/uL (150-450); Red Blood Count 3.44 10^6/uL (3.63-4.92); Red Cell Distribution Width 18.1 % (12-17); White Blood Count 6.3 10^3/uL (3.8-11.8)
[2023-12-26 06:14] LABS: Potassium 3.6 mmol/L (3.5-5.0)
[2023-12-26 06:15] LABS: Albumin 2.4 g/dL (3.2-5.2); Albumin/Globulin Ratio 0.6 (1-3); Calcium 7.5 mg/dL (8.6-10.3); Creatinine, Serum 0.81 mg/dL (0.51-0.95); Globulin 4.1 g/dL (2-4); Magnesium 2.1 mg/dL (1.9-2.7); Total Bilirubin 0.3 mg/dL (0.2-1.0); Total Protein 6.5 g/dL (6.4-8.9); eGFR CKD-EPI 85.7 (>60)
[2023-12-26] MEDS: cefTRIAXone 1 gm/50 mL D5W 1 GM/50 ML BAG IV SCH (08:22)
[2023-12-26] MEDS: Enoxaparin 40 MG/0.4 ML SYR SUBCUT SCH (08:23)
[2023-12-26] MEDS: Azithromycin 500 mg/250 ml NS 500 MG/250 ML BAG IVPB SCH (09:21)
[2023-12-26] MEDS ORDERED: Lidocaine PATCH 4% TOPICAL ONE (11:13)
[2023-12-26 15:19] VITALS: BP 97/78
[2023-12-27] MEDS ORDERED: Influenza vaccine *QUAD* *2023-24* 0.5 ML SYRINGE IM ONE (09:00)
== END 2023-12-26 17:20 | disposition home or self-care (01) | DRG 189 ==
LOC: EDHOLD 00:52 → ED 00:52 → SUATTDRO 05:54 → SSU 08:19 → SUATTDRO 12-25 11:37
PROVIDERS: ADMIT Internal Medicine; ATTEND Internal Medicine